=== PATIENT | female | born 1945 | race Caucasian/White ===

== ENCOUNTER 2018-11-06 09:16 | Inpatient (IN) | payer MEDICARE ==
[~2018-11-06] VITALS: Ht 151.1 cm; Wt 56.0 kg
[2018-11-06] VITALS (17 sets, daily range): BP systolic 134–169; BP diastolic 40–73
[2018-11-06] MEDS ORDERED: NITROGLYCERIN PREMIX 250 ML IV ONE (09:45)
[2018-11-06] MEDS ORDERED: ASPIRIN CHEWABLE 81 MG TABLET. PO ONE (09:45)
[2018-11-06 09:54] LABS: BASO # 0.1 x10^3/uL (0.0-0.2); BASO % 1 % (0-3); EOS # 0.2 x10^3/uL (0.0-0.7); EOS % 3 % (0-3); HEMATOCRIT 42.2 % (36.0-47.0); HEMOGLOBIN 14.1 g/dL (12.0-15.5); LYMPH # 3.9 x10^3/uL (1.0-4.8); LYMPH % 44 % (24-48); MEAN CORPUSCULAR HEMOGLOBIN 30 pg (25-35); MEAN CORPUSCULAR HGB CONC 33 g/dL (31-37); MEAN CORPUSCULAR VOLUME 89 fL (79-100); MONO # 0.7 x10^3/uL (0.0-1.1); MONO % 8 % (0-9); NEUT % 45 % (31-73); PLATELET COUNT 241 x10^3/uL (140-400); RED BLOOD COUNT 4.72 x10^6/uL (3.50-5.40); RED CELL DISTRIBUTION WIDTH 14.1 % (11.5-14.5)
--- NOTE | 2018-11-06 09:55 | RAD ---
Single view chest dated 11/06/2018. No comparison available. Clinical indication: Chest pain. FINDINGS: Single upright portable exam performed. Heart size mildly enlarged. There is some prominent perihilar and bibasilar linear markings. No consolidation or pleural effusion. No pneumothorax. Mild tortuosity of the thoracic aorta. IMPRESSION: 1. No acute radiographic abnormality. 2. Mild cardiomegaly. 3. Mild patchy and linear perihilar opacities, likely atelectasis. Electronically signed by: Leroy Cleaning MD (11/06/2018 9:51 AM) [id number]
--- NOTE | 2018-11-06 09:58 | PHYS DOC ---
Past Medical History Past Medical History: Hypertension Additional Past Medical Histor: "enlarged heart", pt not taking medications for years Past Surgical History: , Hysterectomy Alcohol Use: None Drug Use: None Adult General Chief Complaint Chief Complaint: CHEST PAIN HPI HPI Patient is a 73-year-old female who presents to the emergency department for evaluation. She states she has a past history of "an enlarged heart", but has not seen a doctor and is taking medication for quite some time. She states she began experiencing some chest discomfort yesterday evening, without radiation. She also reports shortness of breath. She denies any pleuritic pain, nausea, vomiting, diarrhea, or any known history of kidney trouble. There are no alleviating or exacerbating factors to her symptoms otherwise. Review of Systems Review of Systems Constitutional: Denies fever or chills [] Eyes: Denies change in visual acuity, redness, or eye pain [] HENT: Denies nasal congestion or sore throat [] Respiratory: Denies cough or pleuritic pain [] Cardiovascular: No additional information not addressed in HPI [] GI: Denies abdominal pain, nausea, vomiting, bloody stools or diarrhea [] : Denies dysuria or hematuria [] Musculoskeletal: Denies back pain or joint pain [] Integument: Denies rash or skin lesions [] Neurologic: Denies headache, focal weakness or sensory changes [] Endocrine: Denies polyuria or polydipsia [] All other systems were reviewed and found to be within normal limits, except as documented in this note. Current Medications Current Medications Current Medications Medications (Trade) Dose Ordered Sig/Sowmya Start Time Stop Time Status Last Admin Dose Admin Aspirin (Children'S Aspirin) 324 mg 1X ONCE 11/06/18 09:45 11/06/18 09:46 DC 11/06/18 09:51 324 MG Nicardipine HCl 50 mg/Sodium Chloride 250 ml @ 25 mls/hr CONT PRN 11/06/18 10:30 11/06/18 10:45 25 MLS/HR Nitroglycerin/ Dextrose 250 ml @ 3 mls/hr 1X ONCE 11/06/18 09:45 11/09/18 21:04 11/06/18 09:57 3 MLS/HR Allergies Allergies Allergies Coded Allergies Type Severity Reaction Last Updated Verified No Known Drug Allergies 11/06/18 No Physical Exam Physical Exam PHYSICAL EXAM: CONSTITUTIONAL: Well developed, well nourished HEAD: normocephalic, atraumatic EENT: PERRL, EOMI. Conjunctivae normal color, sclerae non-icteric; moist mucous membranes. NECK: Supple, non-tender; no meningismus. LUNGS: Lungs CTA, breathing even and unlabored. Normal air movement. HEART: Regular bradycardia, no murmur CHEST: No deformity; non-tender ABDOMEN: The abdomen is soft, and non-tender, no masses or bruits. EXTREM: Normal ROM; no deformity, no calf tenderness. Normal pulses palpable in all extremities. There is no pedal edema. SKIN: No rash; no diaphoresis NEURO: Alert; normal speech and cognition; CN's grossly intact; strength grossly intact without focal deficit. BACK: No CVA TTP. Current Patient Data Vital Signs Vital Signs Date Time Temp Pulse Resp B/P (MAP) Pulse Ox O2 Delivery O2 Flow Rate FiO2 11/06/18 10:55 45 16 232/84 (133) 96 Room Air 11/06/18 09:16 97.6 97.6 Lab Values Laboratory Tests Test 11/06/18 09:30 White Blood Count 9.0 x10^3/uL (4.0-11.0) Red Blood Count 4.72 x10^6/uL (3.50-5.40) Hemoglobin 14.1 g/dL (12.0-15.5) Hematocrit 42.2 % (36.0-47.0) Mean Corpuscular Volume 89 fL (79-100) Mean Corpuscular Hemoglobin 30 pg (25-35) Mean Corpuscular Hemoglobin Concent 33 g/dL (31-37) Red Cell Distribution Width 14.1 % (11.5-14.5) Platelet Count 241 x10^3/uL (140-400) Neutrophils (%) (Auto) 45 % (31-73) Lymphocytes (%) (Auto) 44 % (24-48) Monocytes (%) (Auto) 8 % (0-9) Eosinophils (%) (Auto) 3 % (0-3) Basophils (%) (Auto) 1 % (0-3) Neutrophils # (Auto) 4.0 x10^3uL (1.8-7.7) Lymphocytes # (Auto) 3.9 x10^3/uL (1.0-4.8) Monocytes # (Auto) 0.7 x10^3/uL (0.0-1.1) Eosinophils # (Auto) 0.2 x10^3/uL (0.0-0.7) Basophils # (Auto) 0.1 x10^3/uL (0.0-0.2) Prothrombin Time 12.4 SEC (11.7-14.0) Prothrombin Time INR 1.0 (0.8-1.1) Sodium Level 144 mmol/L (136-145) Potassium Level 3.5 mmol/L (3.5-5.1) Chloride Level 106 mmol/L (98-107) Carbon Dioxide Level 24 mmol/L (21-32) Anion Gap 14 (6-14) Blood Urea Nitrogen 12 mg/dL (7-20) Creatinine 1.0 mg/dL (0.6-1.0) Estimated GFR (Cockcroft-Gault) 54.7 BUN/Creatinine Ratio 12 (6-20) Glucose Level 94 mg/dL (70-99) Calcium Level 8.7 mg/dL (8.5-10.1) Magnesium Level 1.8 mg/dL (1.8-2.4) Total Bilirubin 0.3 mg/dL (0.2-1.0) Aspartate Amino Transferase (AST) 16 U/L (15-37) Alanine Aminotransferase (ALT) 15 U/L (14-59) Alkaline Phosphatase 83 U/L (46-116) Creatine Kinase 37 U/L (26-192) Creatine Kinase MB (Mass) 0.7 ng/mL (0.0-3.6) Creatine Kinase MB Relative Index 1.9 % (0-4) Troponin I Quantitative < 0.017 ng/mL (0.000-0.055) KI-Hbw-D-Type Natriuretic Peptide 686 pg/mL (0-124) H Total Protein 7.5 g/dL (6.4-8.2) Albumin 3.1 g/dL (3.4-5.0) L Albumin/Globulin Ratio 0.7 (1.0-1.7) L Thyroid Stimulating Hormone (TSH) 4.614 uIU/mL (0.358-3.74) H Free Thyroxine 1.01 ng/dL (0.76-1.46) Laboratory Tests 11/06/18 09:30 Laboratory Tests 11/06/18 09:30 EKG EKG [Probable t sinus rhythm with 2-1 AV block, cannot rule out third-degree heart block, with a ventricular rate of 42 beats for minute, left axis deviation, normal intervals. There are no acute ischemic ST/T changes.] Radiology/Procedures Radiology/Procedures [PROCEDURE: PORTABLE CHEST 1V Single view chest dated 11/06/2018. No comparison available. Clinical indication: Chest pain. FINDINGS: Single upright portable exam performed. Heart size mildly enlarged. There is some prominent perihilar and bibasilar linear markings. No consolidation or pleural effusion. No pneumothorax. Mild tortuosity of the thoracic aorta. IMPRESSION: 1. No acute radiographic abnormality. 2. Mild cardiomegaly. 3. Mild patchy and linear perihilar opacities, likely atelectasis.] Course & Med Decision Making Course & Med Decision Making Pertinent Labs and Imaging studies reviewed. (See chart for details) [11 AM:The patient's condition remains stable. I spoke with the hospitalist, who accepted the patient to the hospital for further evaluation and treatment. He also spoke with cardiology, who thinks the patient's EKG are more likely represents a 2:1 AV block rather than third-degree heart block, recommended Cardchencho, and will see the patient.] Dragon Disclaimer Dragon Disclaimer This electronic medical record was generated, in whole or in part, using a voice recognition dictation system. Departure Departure Impression: Primary Impression: Chest pain Additional Impression: Hypertension Disposition: ADMITTED INPATIENT Admitting Physician: Tish Vargas Condition: STABLE Referrals: UNKNOWN PCP NAME (PCP) Problem Qualifiers WALKER BAXTER MD Nov 06, 2018 09:58
[2018-11-06 10:03] LABS: PROTHROMBIN TIME PATIENT 12.4 SEC (11.7-14.0)
[2018-11-06 10:07] LABS: CALCIUM 8.7 mg/dL (8.5-10.1); GFR 54.7; POTASSIUM 3.5 mmol/L (3.5-5.1)
[2018-11-06 10:13] LABS: ALBUMIN 3.1 g/dL (3.4-5.0); ALBUMIN/GLOBULIN RATIO 0.7 (1.0-1.7); MAGNESIUM 1.8 mg/dL (1.8-2.4); TOTAL BILIRUBIN 0.3 mg/dL (0.2-1.0); TOTAL PROTEIN 7.5 g/dL (6.4-8.2)
[2018-11-06 10:20] LABS: FREE T4 1.01 ng/dL (0.76-1.46); THYROID STIM HORMONE (TSH) 4.614 uIU/mL (0.358-3.74)
--- NOTE | 2018-11-06 12:23 | PDOC1 ---
History and Physical Date of Admission Date of Admission DATE: 11/06/18 TIME: 12:18 Identification/Chief Complaint Chief Complaint Chest pain Source Source: Caregiver, Chart review, Patient History of Present Illness History of Present Illness 73-year-old white female who lives alone at home, untreated hypertension, no insurance, no PCP, but sounds like she has long-standing hypertension . At one point, put on meds by [facility] many years ago but has been off of anything now. Chest pain severe today and found have a blood pressure of over 230. She looks kind of flushed. Chest pain moving to her left arm and right arm all over her chest. Started on Cardene drip and nitro drip. Trop neg, labs ok so far Admitted. Bradycardia, initial EKG was thought to be third degree heart block but neurology has seen the EKG is only 2-1 AV block. Admitted to ICU with nitro gtt to control blood pressure along with cards consulted. TSH is 4/ but T4 T3 normal, patient still is having some mild chest discomfort, appears hyperemic otherwise no other symptoms. Past Medical History Cardiovascular: HTN Past Surgical History Past Surgical History: No pertinent history Family History Family History: High Cholestrol, Hypertension Social History Smoke: No ALCOHOL: none Drugs: None Current Problem List Problem List Problems Medical Problems: (1) Chest pain Status: Acute (2) Hypertension Status: Acute Current Medications Current Medications Current Medications Aspirin (Children'S Aspirin) 324 mg 1X ONCE PO Last administered on 11/06/18at 09:51; Start 11/06/18 at 09:45; Stop 11/06/18 at 09:46; Status DC Nitroglycerin/ Dextrose 250 ml @ 3 mls/hr 1X ONCE IV Last administered on 11/06at 09:57; Start 11/06/18 at 09:45; Stop 11/09/18 at 21:04 Nicardipine HCl 50 mg/Sodium Chloride 250 ml @ 25 mls/hr CONT PRN IV SEE I/O RECORD Last administered on 11/06/18at 10:45; Start 11/06/18 at 10:30 Allergies Allergies: Coded Allergies: No Known Drug Allergies (Unverified , 11/06/18) ROS Review of System For history of present illness, the rest of ROS 14 point negative Physical Exam General: Alert, Oriented X3, Cooperative, No acute distress, Other (weak looking, not in distress) HEENT: Atraumatic, PERRLA, EOMI Lungs: Clear to auscultation Heart: S1S2, RRR, no thrills, no rubs, no gallops, no murmurs Cardiovascular: S1, S2 Abdomen: Normal bowel sounds, Soft, No tenderness, No hepatosplenomegaly, No masses Rectal Exam: not examined PELVIC: Nml ext genitalia Extremities: No clubbing, No cyanosis, No edema, Normal pulses, No tenderness/ swelling Skin: No rashes, No breakdown, No significant lesion Neuro: Normal gait, Normal speech, Strength at 5/5 X4 ext, Normal tone, Sensation intact, Cranial nerves 3-12 NL, Reflexes 2+ Psych/Mental Status: Mental status NL, Mood NL Vitals Vitals Vital Signs Date Time Temp Pulse Resp B/P (MAP) Pulse Ox O2 Delivery O2 Flow Rate FiO2 11/06/18 11:38 46 16 156/68 (97) 95 Room Air 11/06/18 09:16 97.6 97.6 Labs Labs Laboratory Tests Test 11/06/18 09:30 White Blood Count 9.0 x10^3/uL (4.0-11.0) Red Blood Count 4.72 x10^6/uL (3.50-5.40) Hemoglobin 14.1 g/dL (12.0-15.5) Hematocrit 42.2 % (36.0-47.0) Mean Corpuscular Volume 89 fL (79-100) Mean Corpuscular Hemoglobin 30 pg (25-35) Mean Corpuscular Hemoglobin Concent 33 g/dL (31-37) Red Cell Distribution Width 14.1 % (11.5-14.5) Platelet Count 241 x10^3/uL (140-400) Neutrophils (%) (Auto) 45 % (31-73) Lymphocytes (%) (Auto) 44 % (24-48) Monocytes (%) (Auto) 8 % (0-9) Eosinophils (%) (Auto) 3 % (0-3) Basophils (%) (Auto) 1 % (0-3) Neutrophils # (Auto) 4.0 x10^3uL (1.8-7.7) Lymphocytes # (Auto) 3.9 x10^3/uL (1.0-4.8) Monocytes # (Auto) 0.7 x10^3/uL (0.0-1.1) Eosinophils # (Auto) 0.2 x10^3/uL (0.0-0.7) Basophils # (Auto) 0.1 x10^3/uL (0.0-0.2) Prothrombin Time 12.4 SEC (11.7-14.0) Prothromb Time International Ratio 1.0 (0.8-1.1) Sodium Level 144 mmol/L (136-145) Potassium Level 3.5 mmol/L (3.5-5.1) Chloride Level 106 mmol/L (98-107) Carbon Dioxide Level 24 mmol/L (21-32) Anion Gap 14 (6-14) Blood Urea Nitrogen 12 mg/dL (7-20) Creatinine 1.0 mg/dL (0.6-1.0) Estimated GFR (Cockcroft-Gault) 54.7 BUN/Creatinine Ratio 12 (6-20) Glucose Level 94 mg/dL (70-99) Calcium Level 8.7 mg/dL (8.5-10.1) Magnesium Level 1.8 mg/dL (1.8-2.4) Total Bilirubin 0.3 mg/dL (0.2-1.0) Aspartate Amino Transf (AST/SGOT) 16 U/L (15-37) Alanine Aminotransferase (ALT/SGPT) 15 U/L (14-59) Alkaline Phosphatase 83 U/L (46-116) Creatine Kinase 37 U/L (26-192) Creatine Kinase MB (Mass) 0.7 ng/mL (0.0-3.6) Creatine Kinase MB Relative Index 1.9 % (0-4) Troponin I Quantitative < 0.017 ng/mL (0.000-0.055) QV-Msc-F-Type Natriuretic Peptide 686 pg/mL (0-124) Total Protein 7.5 g/dL (6.4-8.2) Albumin 3.1 g/dL (3.4-5.0) Albumin/Globulin Ratio 0.7 (1.0-1.7) Thyroid Stimulating Hormone (TSH) 4.614 uIU/mL (0.358-3.74) Free Thyroxine 1.01 ng/dL (0.76-1.46) Laboratory Tests Test 3/13/19 09:30 White Blood Count 9.0 x10^3/uL (4.0-11.0) Red Blood Count 4.72 x10^6/uL (3.50-5.40) Hemoglobin 14.1 g/dL (12.0-15.5) Hematocrit 42.2 % (36.0-47.0) Mean Corpuscular Volume 89 fL (79-100) Mean Corpuscular Hemoglobin 30 pg (25-35) Mean Corpuscular Hemoglobin Concent 33 g/dL (31-37) Red Cell Distribution Width 14.1 % (11.5-14.5) Platelet Count 241 x10^3/uL (140-400) Neutrophils (%) (Auto) 45 % (31-73) Lymphocytes (%) (Auto) 44 % (24-48) Monocytes (%) (Auto) 8 % (0-9) Eosinophils (%) (Auto) 3 % (0-3) Basophils (%) (Auto) 1 % (0-3) Neutrophils # (Auto) 4.0 x10^3uL (1.8-7.7) Lymphocytes # (Auto) 3.9 x10^3/uL (1.0-4.8) Monocytes # (Auto) 0.7 x10^3/uL (0.0-1.1) Eosinophils # (Auto) 0.2 x10^3/uL (0.0-0.7) Basophils # (Auto) 0.1 x10^3/uL (0.0-0.2) Prothrombin Time 12.4 SEC (11.7-14.0) Prothromb Time International Ratio 1.0 (0.8-1.1) Sodium Level 144 mmol/L (136-145) Potassium Level 3.5 mmol/L (3.5-5.1) Chloride Level 106 mmol/L (98-107) Carbon Dioxide Level 24 mmol/L (21-32) Anion Gap 14 (6-14) Blood Urea Nitrogen 12 mg/dL (7-20) Creatinine 1.0 mg/dL (0.6-1.0) Estimated GFR (Cockcroft-Gault) 54.7 BUN/Creatinine Ratio 12 (6-20) Glucose Level 94 mg/dL (70-99) Calcium Level 8.7 mg/dL (8.5-10.1) Magnesium Level 1.8 mg/dL (1.8-2.4) Total Bilirubin 0.3 mg/dL (0.2-1.0) Aspartate Amino Transf (AST/SGOT) 16 U/L (15-37) Alanine Aminotransferase (ALT/SGPT) 15 U/L (14-59) Alkaline Phosphatase 83 U/L (46-116) Creatine Kinase 37 U/L (26-192) Creatine Kinase MB (Mass) 0.7 ng/mL (0.0-3.6) Creatine Kinase MB Relative Index 1.9 % (0-4) Troponin I Quantitative < 0.017 ng/mL (0.000-0.055) BU-Siu-Z-Type Natriuretic Peptide 686 pg/mL (0-124) Total Protein 7.5 g/dL (6.4-8.2) Albumin 3.1 g/dL (3.4-5.0) Albumin/Globulin Ratio 0.7 (1.0-1.7) Thyroid Stimulating Hormone (TSH) 4.614 uIU/mL (0.358-3.74) Free Thyroxine 1.01 ng/dL (0.76-1.46) VTE Prophylaxis Ordered VTE Prophylaxis Devices: Yes VTE Pharmacological Prophylaxi: Yes Assessment/Plan Assessment/Plan HTN emergency Bradycardia with 2-1 AV block Long-standing untreated hypertension Chest discomfort PLAN: ICU, cards consulted Hydralazine when necessary Nitro drip Cardizem drip has been stopped-given the 2-1 block most likely No home meds to reconcile Will at least need an echo Compliance about medications when she gets discharged here about BP meds, risk of stroke etc. discussed with her at ER level with the son as witness and understands Critical care 31 minutes LYNDSAY HILLS MD Nov 06, 2018 12:23
[2018-11-06] MEDS ORDERED: ONDANSETRON ODT 4 MG TAB.RAPDIS. PO PRN (12:30)
[2018-11-06] MEDS ORDERED: MORPHINE SULFATE 2 MG/ML VIAL. IV PRN (12:30)
[2018-11-06] MEDS ORDERED: ACETAMINOPHEN 500 MG TABLET PO PRN (12:30)
[2018-11-06] MEDS ORDERED: IBUPROFEN 400 MG TABLET. PO PRN (12:30)
--- NOTE | 2018-11-06 12:53 | EKG ---
[facility] [address] [place] [address] Test Date: 2018-11-06 Test Time: 09:33:29 Pat Name: MARILOU ORTIZ Department: Room: 105 1 Gender: F Entry Processor: : 1945 Requested By: WALKER BAXTER Order Number: [id number] Reading MD: Kali Fontana MD Measurements Intervals [place] Rate: 41 P: CO: QRS: -19 QRSD: 70 T: 85 QT: 518 QTc: 431 Interpretive Statements 2:1 AVB NON-SPECIFIC ST/T CHANGES Electronically Signed On 11-14-2018 9:42:52 CDT by Kali Fontana MD
--- NOTE | 2018-11-06 12:56 | NUR ---
SS following for discharge planning. SS reviewed pt chart. Pt is from home and is currently on room air. No discharge needs noted at this time. SS will continue to follow for pending discharge needs.
--- NOTE | 2018-11-06 13:00 | NUR ---
When questioned patient why she quit taking her blood pressure medication she told me that the doctor at [facility] told her a long time ago that if she could wean herself off of the heart and blood pressure medication in 3 years then to do it.
--- NOTE | 2018-11-06 13:01 | EKG ---
[facility] [address] [place] [address] Test Date: 2018-11-06 Test Time: 09:22:12 Pat Name: MARILOU ORTIZ Department: Room: 105 1 Gender: F Spare Person: : 1945 Requested By: LYNDSAY HILLS Order Number: [id number] Reading MD: Kali Fontana MD Measurements Intervals [place] Rate: 46 P: DC: QRS: -17 QRSD: 64 T: 94 QT: 502 QTc: 444 Interpretive Statements PROBABLE SR 3RD DEGREE HEART BLOCK Electronically Signed On 11-14-2018 9:42:18 CDT by Kali Fontana MD
--- NOTE | 2018-11-06 15:31 | EKG ---
[facility] [address] [place] [address] Test Date: 2018-11-06 Test Time: 15:23:49 Pat Name: MARILOU ORTIZ Department: Room: 105 1 Gender: F Career Placement Specialist: AT : 1945 Requested By: CHRIS CHRISTIE Order Number: [id number] Reading MD: Chris Christie MD Measurements Intervals [place] Rate: 42 P: NE: QRS: -27 QRSD: 72 T: 84 QT: 506 QTc: 425 Interpretive Statements HIGH GRADE AVB Electronically Signed On 11-14-2018 9:48:48 CDT by Chris Christie MD
--- NOTE | 2018-11-06 16:14 | CARD ---
MR#: [id number] Date of Study: 11/06/2018 Ordering Physician: TRICE QURESHI, Referring Physician: LYNDSAY HILLS Tech: Emelina Easley APPROVED REPORT EXAM: Two-dimensional and M-mode echocardiogram with Doppler and color Doppler. Other Information Quality : AverageHR: 91bpm Technically limited study due to body habitus. INDICATION Chest Pain AV Block LEFT VENTRICLE The left ventricle is normal size. There is normal left ventricular wall thickness. The left ventricu lar systolic function is normal and the ejection fraction is within normal range. The Ejection Fracti on is >55%. There is grossly normal LV segmental wall motion. Transmitral Doppler flow pattern is Gra de I-abnormal relaxation pattern. RIGHT VENTRICLE The right ventricle is normal size. There is normal right ventricular wall thickness. The right ventr icular systolic function is normal. ATRIA The left atrium size is normal. The right atrium is borderline dilated. The interatrial septum is int act with no evidence for an atrial septal defect or patent foramen ovale as noted on 2-D or Doppler i maging. AORTIC VALVE The aortic valve is sclerotic but grossly appears trileaflet. Doppler and Color Flow revealed mild ao rtic regurgitation. There is no significant aortic valvular stenosis. MITRAL VALVE The mitral valve is moderately thickened and calcified. There is no evidence of mitral valve prolapse . There is no mitral valve stenosis. Doppler and Color-flow revealed mild mitral regurgitation. TRICUSPID VALVE The tricuspid valve is normal in structure and function. Doppler and Color Flow revealed mild tricusp id regurgitation. RVSP 38 mm Hg There is no tricuspid valve stenosis. PULMONIC VALVE The pulmonic valve is not well visualized. Doppler and Color Flow revealed no pulmonic valvular regur gitation. There is no pulmonic valvular stenosis. GREAT VESSELS The aortic root is normal in size. The IVC is normal in size and collapses >50% with inspiration. PERICARDIAL EFFUSION There is a trace pericardial effusion. Critical Notification Critical Value: No <Conclusion> The left ventricular systolic function is normal and the ejection fraction is within normal range. Th e Ejection Fraction is >55%. There is grossly normal LV segmental wall motion. Doppler and Color-flow revealed mild mitral regurgitation. Doppler and Color Flow revealed mild tricuspid regurgitation. RVSP 38 mm Hg. There is a trace pericardial effusion. Signed by : Kali Fontana, Electronically Approved : 11/06/2018 16:14:27
--- NOTE | 2018-11-06 17:05 | PDOC2 ---
TRICE QURESHI Isidra [employer]MENT[employer] S[employer]OL LIBR[employer]IAN 11/06/18 1705: CARDIAC CONSULT DATE OF CONSULT Date of Consult DATE: 11/06/18 TIME: 17:02 REASON FOR CONSULT Reason for Consult: bradycardia, chest pain HISTORY OF PRESENT ILLNESS HISTORY OF PRESENT ILLNESS Ms Chen is a 73 year old female who presented to the ED with complaints of chest pain and was found to be bradycardic with accelerated hypertension. She reports chest discomfort off and on with increasing frequency over the last few weeks. Each episode lasts for a few minutes and improves with rest. She reports fatigue and shortness of breath with exertion as well. She has history of hypertension and enlarged heart but had stopped taking her medications because she thought she no longer needed them. She is unable to verbalize her functional capacity but reports that she is able to complete ADLs without symptoms. She denies congestive symptoms, lightheadedness or syncope. PAST MEDICAL HISTORY Past Medical History She reports hypertension and enlarged heart but denies any other heart problems. She denies lung disease, renal disease, liver disease. She denies stroke or TIA, denies bleeding or GI disorders. She denies prior rhythm problems , DVT or PE or endocrine disorders. Cardiovascular: HTN, Other PAST SURGICAL HISTORY Past Surgical History: Hysterectomy FAMILY HISTORY Family History she denies premature coronary disease Family History: High Cholestrol, Hypertension SOCIAL HISTORY Social History She denies drug use or significant ETOH use. She denies smoking. CURRENT MEDICATIONS CURRENT MEDICATIONS She had stopped home medications Current Medications Medications (Trade) Dose Ordered Sig/Sowmya Route PRN Reason Start Time Stop Time Status Last Admin Dose Admin Aspirin (Children'S Aspirin) 324 mg 1X ONCE PO 11/06/18 09:45 11/06/18 09:46 DC 11/06/18 09:51 Nitroglycerin/ Dextrose 250 ml @ 3 mls/hr 1X ONCE IV 11/06/18 09:45 11/09/18 21:04 11/06/18 09:57 Nicardipine HCl 50 mg/Sodium Chloride 250 ml @ 25 mls/hr CONT PRN IV SEE I/O RECORD 11/06/18 10:30 11/06/18 16:35 DC 11/06/18 10:45 ALLERGIES ALLERGIES: Coded Allergies: No Known Drug Allergies (Unverified , 11/06/18) ROS Review of System as per HPI or negative PHYSICAL EXAM General: Alert, Oriented X3, Cooperative, No acute distress HEENT: Atraumatic, EOMI Lungs: Other (decreased bases otherwise clear) Heart: Other (bradycardic, no gallos, clicks or rubs. ) Abdomen: Normal bowel sounds, Soft, No tenderness Extremities: No cyanosis, Other (palpable) Neuro: Normal speech, Strength at 5/5 X4 ext Psych/Mental Status: Mental status NL, Mood NL VITALS VITALS Vital Signs Date Time Temp Pulse Resp B/P (MAP) Pulse Ox O2 Delivery O2 Flow Rate FiO2 11/06/18 16:00 97.9 49 14 137/51 (79) 95 Room Air 97.9 LABS Lab: Laboratory Tests Test 11/06/18 09:30 11/06/18 14:00 White Blood Count 9.0 x10^3/uL (4.0-11.0) Red Blood Count 4.72 x10^6/uL (3.50-5.40) Hemoglobin 14.1 g/dL (12.0-15.5) Hematocrit 42.2 % (36.0-47.0) Mean Corpuscular Volume 89 fL (79-100) Mean Corpuscular Hemoglobin 30 pg (25-35) Mean Corpuscular Hemoglobin Concent 33 g/dL (31-37) Red Cell Distribution Width 14.1 % (11.5-14.5) Platelet Count 241 x10^3/uL (140-400) Neutrophils (%) (Auto) 45 % (31-73) Lymphocytes (%) (Auto) 44 % (24-48) Monocytes (%) (Auto) 8 % (0-9) Eosinophils (%) (Auto) 3 % (0-3) Basophils (%) (Auto) 1 % (0-3) Neutrophils # (Auto) 4.0 x10^3uL (1.8-7.7) Lymphocytes # (Auto) 3.9 x10^3/uL (1.0-4.8) Monocytes # (Auto) 0.7 x10^3/uL (0.0-1.1) Eosinophils # (Auto) 0.2 x10^3/uL (0.0-0.7) Basophils # (Auto) 0.1 x10^3/uL (0.0-0.2) Prothrombin Time 12.4 SEC (11.7-14.0) Prothromb Time International Ratio 1.0 (0.8-1.1) Sodium Level 144 mmol/L (136-145) Potassium Level 3.5 mmol/L (3.5-5.1) Chloride Level 106 mmol/L (98-107) Carbon Dioxide Level 24 mmol/L (21-32) Anion Gap 14 (6-14) Blood Urea Nitrogen 12 mg/dL (7-20) Creatinine 1.0 mg/dL (0.6-1.0) Estimated GFR (Cockcroft-Gault) 54.7 BUN/Creatinine Ratio 12 (6-20) Glucose Level 94 mg/dL (70-99) Calcium Level 8.7 mg/dL (8.5-10.1) Magnesium Level 1.8 mg/dL (1.8-2.4) Total Bilirubin 0.3 mg/dL (0.2-1.0) Aspartate Amino Transf (AST/SGOT) 16 U/L (15-37) Alanine Aminotransferase (ALT/SGPT) 15 U/L (14-59) Alkaline Phosphatase 83 U/L (46-116) Creatine Kinase 37 U/L (26-192) Creatine Kinase MB (Mass) 0.7 ng/mL (0.0-3.6) Creatine Kinase MB Relative Index 1.9 % (0-4) Troponin I Quantitative < 0.017 ng/mL (0.000-0.055) 0.030 ng/mL (0.000-0.055) MM-Ycg-G-Type Natriuretic Peptide 686 pg/mL (0-124) Total Protein 7.5 g/dL (6.4-8.2) Albumin 3.1 g/dL (3.4-5.0) Albumin/Globulin Ratio 0.7 (1.0-1.7) Thyroid Stimulating Hormone (TSH) 4.614 uIU/mL (0.358-3.74) Free Thyroxine 1.01 ng/dL (0.76-1.46) IMAGES IMAGES CXR - IMPRESSION: 1. No acute radiographic abnormality. 2. Mild cardiomegaly. 3. Mild patchy and linear perihilar opacities, likely atelectasis. EKG EKG EKG 2:1 AVB , no acute ischemic changes. ASSESSMENT/PLAN ASSESSMENT/PLAN 1. High grade AVB - avoid av node suppressing agents. check echo. atropine PRN. consider PPM placement in am. 2. chest pain - likely secondary to #1. Normal LVEF and wall motion. Consider MPI after rhythm mgmt. 3. dyspnea on exertion - likely secondary to #1 No overt heart failure. 4. hypothyroidism, mild - not likely culprit for #1. mgmt per PCP NPO after MN for possible PPM, atropine PRN. BP control much improved with cardene. would allow for a little more elevated pressures in light of heart rhythm. titrate off cardene if possible R/B/A to PPM reviewed with patient. CHRIS CHRISTIE MD 11/06/182044: CARDIAC CONSULT ASSESSMENT/PLAN ASSESSMENT/PLAN Pt. seen and examined. Agree with above [employer]IV[employer] WORK[employer]IVING note. 73 y.o female presenting with high grade AVB and severe malignant HTN Currently w/o chest pain. Echo with normal EF Continue BP control. Plan for dual chamber pacer tomorrow. R/b/a discussed with patient and family. They wish to proceed. TRICE QURESHI APRN Nov 06, 2018 17:05 CHRIS CHRISTIE MD Nov 06, 2018 20:45
[2018-11-06] MEDS ORDERED: ATROPINE 0.5 MG/5 ML DISP.SYRINGE. IV PRN (17:15)
[2018-11-06 17:53] LABS: CHOLESTEROL/HDL RATIO 5.5
[2018-11-07] VITALS (29 sets, daily range): BP systolic 115–175; BP diastolic 48–99
[2018-11-07] MEDS ORDERED: MIDAZOLAM HCL/PF 2 MG/2 ML VIAL. IV ONE (08:00)
[2018-11-07] MEDS ORDERED: LIDOCAINE 1%/EPI 1:100,000 20 ML VIAL. IJ ONE (08:00)
[2018-11-07] MEDS ORDERED: fentaNYL PF VIAL 100 MCG/2 ML VIAL ONE (08:03)
[2018-11-07] MEDS ORDERED: LIDOCAINE 2%/EPI 1:100,000 20 ML VIAL. ONE (08:03)
[2018-11-07] MEDS ORDERED: MIDAZOLAM HCL/PF 2 MG/2 ML VIAL. ONE (08:03)
--- NOTE | 2018-11-07 08:20 | NUR ---
[id number] : Reinforced pre and post op expectations w pacer placement. Questions answered/permits signed and charted. medical lab director here. transported per bed /full monitor for procedure.
[2018-11-07] MEDS ORDERED: BACITRACIN 50,000 UNIT in IV NORMAL SALINE 250ML 250 ML IRR ONE (08:30)
--- NOTE | 2018-11-07 08:44 | PDOC ---
MODERATE SEDATION ASSESSMENT RISKS/ALTERNATIVES Risks/Alternatives Risks and alternatives of this type of sedation and procedure discussed with: RISK/ALTERNATIVES: Patient H & P ON CHART H & P H & P on chart and reviewed for co-morbid conditions and appropriate labs. H&P ON CHART: Yes STATUS PREG STATUS ASSESSED: N/A MEDS/ALLERGIES REVIEWED Meds/Allergies Reviewed Medications and Allergies including time and route of recently administered narcotics and sedatives. MEDS/ALLERGIES REVIEWED: Yes ASA RATING ASA RATING: III AIRWAY ASSESSMENT Airway Assessment Airway patency, oral function limitations, presence of caps, crowns, dentures, partials, and ability to extend neck assessed. AIRWAY ASSESSMENT: Yes MALLAMPATI SCORE MALLAMPATI SCORE: II PRE-SEDATION ASSESSMENT PRE-SEDATION ASSESSMENT: Yes CHRIS CHRISTIE MD Nov 07, 2018 08:44
[2018-11-07] MEDS ORDERED: LIDOCAINE 2%/EPI 1:100,000 20 ML VIAL. IJ ONE (09:00)
[2018-11-07] MEDS: fentaNYL PF VIAL 100 MCG/2 ML VIAL IV ONE (09:01)
--- NOTE | 2018-11-07 10:26 | PDOC ---
PROGRESS NOTES History of Present Illness History of Present Illness Assessment/Plan Assessment/Plan SEVERE HTN emergency High grade AVB Echo with normal EF dual chamber pacer NEEDED Long-standing untreated hypertension Chest discomfort PLAN: ICU, cards consulted Hydralazine IV PRN Nitro drip Cardizem drip d/c echo Compliance about medications needs pcp soon 33 min cc time Vitals Vitals Vital Signs Date Time Temp Pulse Resp B/P (MAP) Pulse Ox O2 Delivery O2 Flow Rate FiO2 11/07/18 10:03 94 14 96 Nasal Cannula 2.0 11/07/18 08:00 158/66 (96) 11/07/18 07:00 98.1 98.1 Physical Exam General: Alert, Oriented X3, Cooperative, No acute distress, mild distress Heart: Regular rate, No murmurs, Other (bradycardic, no gallos, clicks or rubs. ) Lungs: Clear Abdomen: Normal bowel sounds, Soft, No tenderness Extremities: No cyanosis, Other (palpable) Skin: No rashes, No breakdown, No significant lesion Labs LABS Laboratory Tests Test 11/06/18 12:59 11/06/18 14:00 11/06/18 17:40 Nasal Screen MRSA (PCR) Negative (Negative) Troponin I Quantitative 0.030 ng/mL (0.000-0.055) 0.020 ng/mL (0.000-0.055) Assessment and Plan Assessmemt and Plan Problems Medical Problems: (1) Chest pain Status: Acute (2) Hypertension Status: Acute Comment Review of Relevant I have reviewed the following items carissa (where applicable) has been applied. Labs Laboratory Tests Test 11/06/18 09:30 11/06/18 12:59 11/06/18 14:00 11/06/18 17:40 White Blood Count 9.0 x10^3/uL (4.0-11.0) Red Blood Count 4.72 x10^6/uL (3.50-5.40) Hemoglobin 14.1 g/dL (12.0-15.5) Hematocrit 42.2 % (36.0-47.0) Mean Corpuscular Volume 89 fL (79-100) Mean Corpuscular Hemoglobin 30 pg (25-35) Mean Corpuscular Hemoglobin Concent 33 g/dL (31-37) Red Cell Distribution Width 14.1 % (11.5-14.5) Platelet Count 241 x10^3/uL (140-400) Neutrophils (%) (Auto) 45 % (31-73) Lymphocytes (%) (Auto) 44 % (24-48) Monocytes (%) (Auto) 8 % (0-9) Eosinophils (%) (Auto) 3 % (0-3) Basophils (%) (Auto) 1 % (0-3) Neutrophils # (Auto) 4.0 x10^3uL (1.8-7.7) Lymphocytes # (Auto) 3.9 x10^3/uL (1.0-4.8) Monocytes # (Auto) 0.7 x10^3/uL (0.0-1.1) Eosinophils # (Auto) 0.2 x10^3/uL (0.0-0.7) Basophils # (Auto) 0.1 x10^3/uL (0.0-0.2) Prothrombin Time 12.4 SEC (11.7-14.0) Prothromb Time International Ratio 1.0 (0.8-1.1) Sodium Level 144 mmol/L (136-145) Potassium Level 3.5 mmol/L (3.5-5.1) Chloride Level 106 mmol/L (98-107) Carbon Dioxide Level 24 mmol/L (21-32) Anion Gap 14 (6-14) Blood Urea Nitrogen 12 mg/dL (7-20) Creatinine 1.0 mg/dL (0.6-1.0) Estimated GFR (Cockcroft-Gault) 54.7 BUN/Creatinine Ratio 12 (6-20) Glucose Level 94 mg/dL (70-99) Calcium Level 8.7 mg/dL (8.5-10.1) Magnesium Level 1.8 mg/dL (1.8-2.4) Total Bilirubin 0.3 mg/dL (0.2-1.0) Aspartate Amino Transf (AST/SGOT) 16 U/L (15-37) Alanine Aminotransferase (ALT/SGPT) 15 U/L (14-59) Alkaline Phosphatase 83 U/L (46-116) Creatine Kinase 37 U/L (26-192) Creatine Kinase MB (Mass) 0.7 ng/mL (0.0-3.6) Creatine Kinase MB Relative Index 1.9 % (0-4) Troponin I Quantitative < 0.017 ng/mL (0.000-0.055) 0.030 ng/mL (0.000-0.055) 0.020 ng/mL (0.000-0.055) TE-Lsh-I-Type Natriuretic Peptide 686 pg/mL (0-124) Total Protein 7.5 g/dL (6.4-8.2) Albumin 3.1 g/dL (3.4-5.0) Albumin/Globulin Ratio 0.7 (1.0-1.7) Triglycerides Level 292 mg/dL (0-150) Cholesterol Level 221 mg/dL (0-200) LDL Cholesterol, Calculated 123 mg/dL (0-100) VLDL Cholesterol, Calculated 58 mg/dL (0-40) Non-HDL Cholesterol Calculated 181 mg/dL (0-129) HDL Cholesterol 40 mg/dL (40-60) Cholesterol/HDL Ratio 5.5 Thyroid Stimulating Hormone (TSH) 4.614 uIU/mL (0.358-3.74) Free Thyroxine 1.01 ng/dL (0.76-1.46) Nasal Screen MRSA (PCR) Negative (Negative) Laboratory Tests Test 11/06/18 12:59 11/06/18 14:00 11/06/18 17:40 Nasal Screen MRSA (PCR) Negative (Negative) Troponin I Quantitative 0.030 ng/mL (0.000-0.055) 0.020 ng/mL (0.000-0.055) Medications Current Medications Aspirin (Children'S Aspirin) 324 mg 1X ONCE PO Last administered on 11/06/18at 09:51; Start 11/06/18 at 09:45; Stop 11/06/18 at 09:46; Status DC Nitroglycerin/ Dextrose 250 ml @ 3 mls/hr 1X ONCE IV Last administered on 11/06at 09:57; Start 11/06/18 at 09:45; Stop 11/09/18 at 21:04 Nicardipine HCl 50 mg/Sodium Chloride 250 ml @ 25 mls/hr CONT PRN IV SEE I/O RECORD Last administered on 11/06/18at 10:45; Start 11/06/18 at 10:30; Stop 11/06 at 16:35; Status DC Acetaminophen (Tylenol) 500 mg PRN Q6HRS PRN PO MILD PAIN / TEMP; Start at 12:30 Acetaminophen/ Codeine Phosphate (Tylenol #3) 1 tab PRN Q6HRS PRN PO PAIN; Start 11/06/18 at 12:30 Morphine Sulfate (Morphine Sulfate) 2 mg PRN Q2HR PRN IV PAIN; Start 11/06/18 at 12:30 Hydralazine HCl (Apresoline Inj) 10 mg PRN Q4HRS PRN IVP ELEVATED BP, SEE COMMENTS; Start 11/06/18 at 12:30 Ibuprofen (Motrin) 400 mg PRN Q6HRS PRN PO INFLAMMATION; Start 11/06/18 at 12: 30 Ondansetron HCl (Zofran) 4 mg PRN Q6HRS PRN IV NAUSEA/VOMITING; Start 11/06/18 at 12:30 Ondansetron HCl (Zofran Odt) 4 mg PRN Q6HRS PRN PO NAUSEA/VOMITING; Start 11/06 at 12:30 Nicardipine HCl 50 mg/Sodium Chloride 250 ml @ 25 mls/hr CONT PRN IV SEE I/O RECORD Last administered on 11/06/18at 17:32; Start 11/06/18 at 16:45 Atropine Sulfate (ATROPINE 0.5mg SYRINGE) 0.5 mg PRN 1X PRN IV symptomatic bradycardia; Start 11/06/18 at 17:15 Midazolam HCl (Versed) 2 mg 1X ONCE IV Last administered on 11/07/18at 09:01; Start 11/07/18 at 08:00; Stop 11/07/18 at 08:04; Status DC Fentanyl Citrate (Fentanyl 2ml Vial) 100 mcg 1X ONCE IV Last administered on at 09:01; Start 11/07/18 at 08:00; Stop 11/07/18 at 08:04; Status DC Lidocaine/ Epinephrine (LIDOCAINE 1%-EPI 1:100,000 Multi-Dose) 20 ml 1X ONCE IJ ; Start 11/07/18 at 08:00; Stop 11/07/18 at 08:01; Status Cancel Bacitracin 03197 unit/Sodium Chloride 250 ml @ 0 mls/hr 1X ONCE IRR Last administered on 11/07/18at 09:35; Start 11/07/18 at 08:30; Stop 11/07/18 at 08:31 ; Status DC Cefazolin Sodium 50 ml @ 100 mls/hr 1X ONCE IV Last administered on at 08:45; Start 11/07/18 at 08:00; Stop 11/07/18 at 08:29; Status DC Lidocaine/ Epinephrine (LIDOCAINE 2%-EPI 1:100,000 multi-dose) 20 ml STK-MED ONCE .ROUTE ; Start 11/07/18 at 08:03; Stop 11/07/18 at 08:08; Status DC Midazolam HCl (Versed) 2 mg STK-MED ONCE .ROUTE ; Start 11/07/18 at 08:03; Stop 11/07/18 at 08:08; Status DC Fentanyl Citrate (Fentanyl 2ml Vial) 100 mcg STK-MED ONCE .ROUTE ; Start at 08:03; Stop 11/07/18 at 08:08; Status DC Cefazolin Sodium 50 ml @ As Directed STK-MED ONCE IV ; Start 11/07/18 at 08:04; Stop 11/07/18 at 08:08; Status DC Lidocaine/ Epinephrine (LIDOCAINE 2%-EPI 1:100,000 multi-dose) 20 ml 1X ONCE IJ Last administered on 11/07/18at 09:02; Start 11/07/18 at 09:00; Stop at 09:07; Status DC Vitals/I & O Vital Sign - Last 24 Hours 11/06/18 11/06/18 11/06/18 11/06/18 10:27 10:44 10:55 11:00 Pulse 42 48 45 48 Resp 16 16 16 16 B/P (MAP) 230/84 (132) 242/78 (132) 232/84 (133) 214/78 (123) Pulse Ox 98 96 96 97 O2 Delivery Room Air Room Air Room Air 11/06/18 11/06/18 11/06/18 11/06/18 11:07 11:13 11:23 11:28 Pulse 48 48 48 48 Resp 16 18 16 18 B/P (MAP) 196/66 (109) 178/76 (110) 165/70 (101) 170/74 (106) Pulse Ox 94 94 94 95 O2 Delivery Room Air Room Air 11/06/18 11/06/18 11/06/18 11/06/18 11:33 11:38 11:53 12:08 Pulse 44 46 46 48 Resp 16 16 20 20 B/P (MAP) 167/72 (103) 156/68 (97) 153/67 (95) 170/75 (106) Pulse Ox 95 95 95 97 O2 Delivery Room Air Room Air 11/06/18 11/06/18 11/06/18 11/06/18 12:23 12:38 13:00 13:15 Temp 98.3 98.3 Pulse 48 46 99 61 Resp 16 20 14 14 B/P (MAP) 170/71 (104) 166/72 (103) 169/48 (88) 163/66 (98) Pulse Ox 96 95 96 96 O2 Delivery Room Air Room Air Room Air 11/06/18 11/06/18 11/06/18 11/06/18 13:30 14:00 14:15 14:30 Pulse 44 45 62 54 Resp 14 14 14 14 B/P (MAP) 166/63 (97) 150/50 (83) 150/59 (89) 159/54 (89) Pulse Ox 97 96 96 97 O2 Delivery Room Air Room Air Room Air Room Air 11/06/18 11/06/18 11/06/18 11/06/18 14:45 15:00 16:00 17:00 Temp 97.9 97.9 Pulse 66 42 49 41 Resp 14 14 14 14 B/P (MAP) 150/55 (86) 136/51 (79) 137/51 (79) 154/54 (87) Pulse Ox 97 93 95 94 O2 Delivery Room Air Room Air Room Air Room Air 11/06/18 11/06/18 11/06/18 11/06/18 18:00 19:00 20:00 20:00 Temp 98.8 98.8 Pulse 58 46 46 Resp 14 15 16 B/P (MAP) 158/51 (86) 165/71 (102) 160/73 (102) Pulse Ox 94 95 96 O2 Delivery Room Air Room Air Room Air Room Air 11/06/18 11/06/18 11/06/18 11/06/18 21:00 22:00 23:00 23:15 Temp 97.8 97.8 Pulse 64 53 38 38 Resp 20 18 15 20 B/P (MAP) 146/56 (86) 152/58 (89) 138/40 (72) 134/58 (83) Pulse Ox 94 95 96 95 O2 Delivery Room Air Room Air Room Air Room Air 11/07/18 11/07/18 11/07/18 11/07/18 00:00 01:00 02:00 03:00 Pulse 38 39 39 38 Resp 15 16 18 15 B/P (MAP) 142/58 (86) 115/54 (74) 120/55 (76) 161/62 (95) Pulse Ox 97 98 97 96 O2 Delivery Room Air Room Air Room Air Room Air 11/07/18 11/07/18 11/07/18 11/07/18 04:00 04:01 04:15 05:00 Temp 97.5 97.5 Pulse 37 38 Resp 16 16 B/P (MAP) 133/58 (83) 140/60 (86) 175/71 (105) Pulse Ox 96 97 O2 Delivery Room Air Room Air Room Air 11/07/18 11/07/18 11/07/18 11/07/18 05:15 06:00 07:00 07:30 Temp 98.1 98.1 Pulse 40 40 42 Resp 18 14 18 B/P (MAP) 155/71 (99) 153/64 (93) 149/54 (85) 159/63 (95) Pulse Ox 96 97 95 O2 Delivery Room Air Room Air Room Air 11/07/18 11/07/18 11/07/18 11/07/18 08:00 08:00 09:01 10:03 Pulse 42 94 Resp 22 18 14 B/P (MAP) 158/66 (96) Pulse Ox 95 96 O2 Delivery Room Air Room Air Nasal Cannula O2 Flow Rate 2.0 Intake and Output 11/06/18 11/06/18 11/07/18 14:59 22:59 06:59 Intake Total 240 ml 480.55 ml 427 ml Output Total 600 ml Balance 240 ml 480.55 ml -173 ml BHUPENDRA MARINELLI MD Nov 07, 2018 10:26
--- NOTE | 2018-11-07 10:36 | CARD ---
MR#: [id number] Date of Study: 11/07/2018 Ordering Physician: CHRIS CHRISTIE, Referring Physician: LYNDSAY HILLS, Tech: APPROVED REPORT HISTORY The Patient is a 73 year-old female with a history of HTN presented with high grade AVB PROCEDURES Insertion Dual Chamber Pacemaker 30 mL of 2% lidocaine was infiltrated into the skin and subcutaneous tissues for local anesthesia. A n incision was made over the left infraclavicular fossa and using blunt dissection and cautery a pock et was created. Venous access was obtained in the left subclavian vein and 9 and 7 [place] sheaths we re inserted. Subsequently, a St. Leonid bipolar active fixation right ventricular lead model Tendril 2088TC/52, SN C [id number] was advanced under fluoroscopic guidance and the tip was positioned in the right ventricular apex. Following this, a St. Leonid bipolar active fixation right atrial lead model 2088TC/46 cm, SN C [id number] was placed in the right atrial appendage under fluoroscopy guidance. The leads were secured into place and were attached to a [employer] Leonid dual-chamber permanent pacemaker generator model Assurity MRI 2272, SN [id number]. This was placed in the pocket that was subsequently closed in 3 layers. Hemost asis was secured. At the end of procedure, the right ventricular lead showed sensing amplitude of 6.6 mV, impedance of 590 ohms and a threshold of 0.5 volts at 0.4ms. The right atrial lead showed a sensing amplitude of 4.4 millivolts, impedance of 540 ohms and a threshold of 0.5 volts at 0.4ms. Patient tolerated the pr ocedure well. There were no immediate complications. PARAMETERS: DDD, 60-130 Paced AV delay 200 Sensed AV delay 150ms CONSCIOUS SEDATION AGENTS Moderate sedation: 67 minutes CONCLUSION Successful insertion of St. Leonid dual chamber pacemaker for high grade AV/3rd degree heart block. Signed by : Chris Christie, Electronically Approved : 11/07/2018 10:35:48
[2018-11-07] MEDS: ONDANSETRON PF 4 MG/2 ML VIAL. IV PRN (10:47)
[2018-11-07] MEDS ORDERED: ACETAMINOPHEN 325 MG TABLET. PO PRN (11:15)
[2018-11-07] MEDS ORDERED: NO ANTICOAGULANT THERAPY. MC PRN (11:15)
--- NOTE | 2018-11-07 11:27 | NUR ---
1015 Returned from labor utilization superintendent,arm immobilizer in place. Family teaching per rep on mobile access for pacer checks. Rep reported "patient teaching in am when reassessing settings
[2018-11-07] MEDS: ACETAMINOPHEN/CODEINE 300/30MG TABLET. PO PRN ×2 (11:37→19:52)
--- NOTE | 2018-11-07 12:29 | EKG ---
[facility] [address] [place] [address] Test Date: 2018-11-07 Test Time: 12:19:45 Pat Name: MARILOU ORTIZ Department: Room: 105 1 Gender: F Insurance Executive: DEISY : 1945 Requested By: CHRIS CHRISTIE Order Number: [id number] Reading MD: Chris Christie MD Measurements Intervals [place] Rate: 78 P: 54 WA: 156 QRS: -88 QRSD: 162 T: 79 QT: 446 QTc: 513 Interpretive Statements SINUS RHYTHM V-PACED Electronically Signed On 11-14-2018 13:47:04 CDT by Chris Christie MD
--- NOTE | 2018-11-07 15:57 | RAD ---
Portable chest, 11/07/2018: HISTORY: Post pacemaker insertion Comparison is made yesterday study. A left-sided transvenous pacing device has been placed with one lead extending into the right ventricle while the tip of the other lead is projected over the superior aspect of the right atrium. The heart is mildly enlarged. The pulmonary vascularity is normal. Loss of definition of the left hemidiaphragm is compatible with mild basilar atelectasis, although the portable technique may be contributing to this appearance. The right chest is clear. No pneumothorax or pleural fluid is evident. IMPRESSION: 1. Mild cardiomegaly. 2. Mild left basilar atelectasis. Electronically signed by: Albert Parada MD (11/07/2018 3:54 PM) [facility]
[2018-11-07] MEDS: hydrALAZINE 20 MG/ML VIAL. IVP PRN (19:52)
[2018-11-08] VITALS (15 sets, daily range): BP systolic 128–186; BP diastolic 48–83
[2018-11-08] MEDS: ACETAMINOPHEN/CODEINE 300/30MG TABLET. PO PRN (03:28)
[2018-11-08 04:51] LABS: BASO # 0.1 x10^3/uL (0.0-0.2); BASO % 1 % (0-3); EOS # 0.3 x10^3/uL (0.0-0.7); EOS % 3 % (0-3); HEMATOCRIT 38.9 % (36.0-47.0); HEMOGLOBIN 12.8 g/dL (12.0-15.5); LYMPH # 2.7 x10^3/uL (1.0-4.8); LYMPH % 35 % (24-48); MEAN CORPUSCULAR HEMOGLOBIN 30 pg (25-35); MEAN CORPUSCULAR HGB CONC 33 g/dL (31-37); MEAN CORPUSCULAR VOLUME 90 fL (79-100); MONO # 0.7 x10^3/uL (0.0-1.1); MONO % 8 % (0-9); NEUT # 4.2 x10^3uL (1.8-7.7); NEUT % 53 % (31-73); PLATELET COUNT 209 x10^3/uL (140-400); RED BLOOD COUNT 4.34 x10^6/uL (3.50-5.40); RED CELL DISTRIBUTION WIDTH 14.4 % (11.5-14.5); WHITE BLOOD COUNT 7.9 x10^3/uL (4.0-11.0)
[2018-11-08 05:27] LABS: ALBUMIN 2.7 g/dL (3.4-5.0); ALBUMIN/GLOBULIN RATIO 0.7 (1.0-1.7); CALCIUM 8.7 mg/dL (8.5-10.1); CREATININE 1.1 mg/dL (0.6-1.0); POTASSIUM 4.1 mmol/L (3.5-5.1); TOTAL BILIRUBIN 0.4 mg/dL (0.2-1.0); TOTAL PROTEIN 6.7 g/dL (6.4-8.2)
[2018-11-08] MEDS: hydrALAZINE 20 MG/ML VIAL. IVP PRN ×3 (06:04→17:40)
[2018-11-08] MEDS: ONDANSETRON PF 4 MG/2 ML VIAL. IV PRN (08:35)
--- NOTE | 2018-11-08 09:09 | PDOC ---
CHRISTIE LAUREN GRADE FOREMAN 11/08/18 0909: CARDIO Progress Notes Date and Time Date of Service 11/08/2018 Time of Evaluation 0850 Subjective Subjective: No Chest Pain, No shortness of breath, No Palpitations, Other ( nauseated this am) Vitals Vitals Vital Signs Date Time Temp Pulse Resp B/P (MAP) Pulse Ox O2 Delivery O2 Flow Rate FiO2 11/08/18 07:54 80 187/88 11/08/18 06:00 12 96 Room Air 11/08/18 04:00 97.7 97.7 11/07/18 10:03 2.0 Weight Weight [ ] Input and Output Intake and Output Intake and Output 11/08/18 07:00 Intake Total 670 ml Output Total 640 ml Balance 30 ml Intake Oral 670 ml Output Urine Total 640 ml Laboratory Labs Laboratory Tests Test 11/08/18 04:00 White Blood Count 7.9 x10^3/uL (4.0-11.0) Red Blood Count 4.34 x10^6/uL (3.50-5.40) Hemoglobin 12.8 g/dL (12.0-15.5) Hematocrit 38.9 % (36.0-47.0) Mean Corpuscular Volume 90 fL (79-100) Mean Corpuscular Hemoglobin 30 pg (25-35) Mean Corpuscular Hemoglobin Concent 33 g/dL (31-37) Red Cell Distribution Width 14.4 % (11.5-14.5) Platelet Count 209 x10^3/uL (140-400) Neutrophils (%) (Auto) 53 % (31-73) Lymphocytes (%) (Auto) 35 % (24-48) Monocytes (%) (Auto) 8 % (0-9) Eosinophils (%) (Auto) 3 % (0-3) Basophils (%) (Auto) 1 % (0-3) Neutrophils # (Auto) 4.2 x10^3uL (1.8-7.7) Lymphocytes # (Auto) 2.7 x10^3/uL (1.0-4.8) Monocytes # (Auto) 0.7 x10^3/uL (0.0-1.1) Eosinophils # (Auto) 0.3 x10^3/uL (0.0-0.7) Basophils # (Auto) 0.1 x10^3/uL (0.0-0.2) Sodium Level 140 mmol/L (136-145) Potassium Level 4.1 mmol/L (3.5-5.1) Chloride Level 105 mmol/L (98-107) Carbon Dioxide Level 24 mmol/L (21-32) Anion Gap 11 (6-14) Blood Urea Nitrogen 19 mg/dL (7-20) Creatinine 1.1 mg/dL (0.6-1.0) Estimated GFR (Cockcroft-Gault) 49.0 BUN/Creatinine Ratio 17 (6-20) Glucose Level 91 mg/dL (70-99) Calcium Level 8.7 mg/dL (8.5-10.1) Total Bilirubin 0.4 mg/dL (0.2-1.0) Aspartate Amino Transf (AST/SGOT) 18 U/L (15-37) Alanine Aminotransferase (ALT/SGPT) 12 U/L (14-59) Alkaline Phosphatase 65 U/L (46-116) Total Protein 6.7 g/dL (6.4-8.2) Albumin 2.7 g/dL (3.4-5.0) Albumin/Globulin Ratio 0.7 (1.0-1.7) Physical Exam HEENT: Neck Supple W Full Motion Chest: Symmetric LUNGS: Other (diminished bases) Heart: S1S2, RRR (paced) Abdomen: Soft N/T Extremities: No Calf Tenderness Neurology: alert, oriented, follow commands Other Exams Left chest incision intact with steristrips, no oozing, swelling or erythema, neurovascular status to LUE intact, sling in place Assessment Assessment 1. High grade AVB - EF and WM nml. S/P Dual chamber PPM, normal function, no complications 2. Chest pain/HEARN: none further since PPM placement. Nause noted due to codeine 3. Subclinical Hypothyroidism 4. HTN: labile 5. HLP Recommendations 1. Will plan for outpt MPI. Follow up in 2 weeks for wound check 2. Start on lisinopril and HCTZ, lipitor and ASA. 3. Post Pacemaker instruction. 4. OT and PT eval and note any need for home health. 5. Encouraged HBPM CHRIS CHRISTIE MD 11/08/18 1443: CARDIO Progress Notes Plan Plan Pt. seen and examined. Agree with above SCHOOL TEACHER note. 73 y.o woman s/p pacer for high grade av block Now doing well. Device site appears c/d/i. BP improved with lisinopril. PT/OT evaluating patient, home likely tomorrow. Ok to DC out of ICU. CHRISTIE LAUREN APRN Nov 08, 2018 09:09 CHRIS CHRISTIE MD Nov 08, 2018 14:43
--- NOTE | 2018-11-08 10:05 | PDOC ---
PROGRESS NOTES History of Present Illness History of Present Illness Assessment/Plan SEVERE HTN emergency High grade AVB Echo with normal EF dual chamber pacer placed Long-standing untreated hypertension Chest discomfort PLAN: ICU, cards consulted Hydralazine IV PRN Nitro drip titrate/ off cardene drip echo Compliance about medications needs pcp soon 37 min cc time Vitals Vitals Vital Signs Date Time Temp Pulse Resp B/P (MAP) Pulse Ox O2 Delivery O2 Flow Rate FiO2 11/08/18 07:54 80 187/88 11/08/18 06:00 12 96 Room Air 11/08/18 04:00 97.7 97.7 11/07/18 10:03 2.0 Physical Exam General: Alert, Oriented X3, Cooperative, No acute distress, mild distress Heart: Regular rate, Normal S1, No murmurs, Other (bradycardic, no gallos, clicks or rubs. ) Lungs: Clear Abdomen: Normal bowel sounds, Soft, No tenderness Extremities: No clubbing, No cyanosis, Other (palpable) Skin: No rashes, No breakdown, No significant lesion Labs LABS CHEST PA LATERAL History: 1 day post pacemaker implantation. Comparison with November 07, 2018. Dual-lead pacemaker again identified. There is improved expansion of both lungs on today's study. Small left pleural effusion. No evidence of pneumothorax. No evidence of consolidating infiltrate. The cardiac silhouette is upper limits normal in width. IMPRESSION: Small left pleural effusion. Electronically signed by: Leroy Godoy MD (11/08/2018 10:05 AM) [facility] Laboratory Tests Test 11/08/18 04:00 White Blood Count 7.9 x10^3/uL (4.0-11.0) Red Blood Count 4.34 x10^6/uL (3.50-5.40) Hemoglobin 12.8 g/dL (12.0-15.5) Hematocrit 38.9 % (36.0-47.0) Mean Corpuscular Volume 90 fL (79-100) Mean Corpuscular Hemoglobin 30 pg (25-35) Mean Corpuscular Hemoglobin Concent 33 g/dL (31-37) Red Cell Distribution Width 14.4 % (11.5-14.5) Platelet Count 209 x10^3/uL (140-400) Neutrophils (%) (Auto) 53 % (31-73) Lymphocytes (%) (Auto) 35 % (24-48) Monocytes (%) (Auto) 8 % (0-9) Eosinophils (%) (Auto) 3 % (0-3) Basophils (%) (Auto) 1 % (0-3) Neutrophils # (Auto) 4.2 x10^3uL (1.8-7.7) Lymphocytes # (Auto) 2.7 x10^3/uL (1.0-4.8) Monocytes # (Auto) 0.7 x10^3/uL (0.0-1.1) Eosinophils # (Auto) 0.3 x10^3/uL (0.0-0.7) Basophils # (Auto) 0.1 x10^3/uL (0.0-0.2) Sodium Level 140 mmol/L (136-145) Potassium Level 4.1 mmol/L (3.5-5.1) Chloride Level 105 mmol/L (98-107) Carbon Dioxide Level 24 mmol/L (21-32) Anion Gap 11 (6-14) Blood Urea Nitrogen 19 mg/dL (7-20) Creatinine 1.1 mg/dL (0.6-1.0) Estimated GFR (Cockcroft-Gault) 49.0 BUN/Creatinine Ratio 17 (6-20) Glucose Level 91 mg/dL (70-99) Calcium Level 8.7 mg/dL (8.5-10.1) Total Bilirubin 0.4 mg/dL (0.2-1.0) Aspartate Amino Transf (AST/SGOT) 18 U/L (15-37) Alanine Aminotransferase (ALT/SGPT) 12 U/L (14-59) Alkaline Phosphatase 65 U/L (46-116) Total Protein 6.7 g/dL (6.4-8.2) Albumin 2.7 g/dL (3.4-5.0) Albumin/Globulin Ratio 0.7 (1.0-1.7) Assessment and Plan Assessmemt and Plan Problems Medical Problems: (1) Chest pain Status: Acute (2) Hypertension Status: Acute Comment Review of Relevant I have reviewed the following items carissa (where applicable) has been applied. Labs Laboratory Tests Test 11/06/18 12:59 11/06/18 14:00 11/06/18 17:40 11/08/18 04:00 Nasal Screen MRSA (PCR) Negative (Negative) Troponin I Quantitative 0.030 ng/mL (0.000-0.055) 0.020 ng/mL (0.000-0.055) White Blood Count 7.9 x10^3/uL (4.0-11.0) Red Blood Count 4.34 x10^6/uL (3.50-5.40) Hemoglobin 12.8 g/dL (12.0-15.5) Hematocrit 38.9 % (36.0-47.0) Mean Corpuscular Volume 90 fL (79-100) Mean Corpuscular Hemoglobin 30 pg (25-35) Mean Corpuscular Hemoglobin Concent 33 g/dL (31-37) Red Cell Distribution Width 14.4 % (11.5-14.5) Platelet Count 209 x10^3/uL (140-400) Neutrophils (%) (Auto) 53 % (31-73) Lymphocytes (%) (Auto) 35 % (24-48) Monocytes (%) (Auto) 8 % (0-9) Eosinophils (%) (Auto) 3 % (0-3) Basophils (%) (Auto) 1 % (0-3) Neutrophils # (Auto) 4.2 x10^3uL (1.8-7.7) Lymphocytes # (Auto) 2.7 x10^3/uL (1.0-4.8) Monocytes # (Auto) 0.7 x10^3/uL (0.0-1.1) Eosinophils # (Auto) 0.3 x10^3/uL (0.0-0.7) Basophils # (Auto) 0.1 x10^3/uL (0.0-0.2) Sodium Level 140 mmol/L (136-145) Potassium Level 4.1 mmol/L (3.5-5.1) Chloride Level 105 mmol/L (98-107) Carbon Dioxide Level 24 mmol/L (21-32) Anion Gap 11 (6-14) Blood Urea Nitrogen 19 mg/dL (7-20) Creatinine 1.1 mg/dL (0.6-1.0) Estimated GFR (Cockcroft-Gault) 49.0 BUN/Creatinine Ratio 17 (6-20) Glucose Level 91 mg/dL (70-99) Calcium Level 8.7 mg/dL (8.5-10.1) Total Bilirubin 0.4 mg/dL (0.2-1.0) Aspartate Amino Transf (AST/SGOT) 18 U/L (15-37) Alanine Aminotransferase (ALT/SGPT) 12 U/L (14-59) Alkaline Phosphatase 65 U/L (46-116) Total Protein 6.7 g/dL (6.4-8.2) Albumin 2.7 g/dL (3.4-5.0) Albumin/Globulin Ratio 0.7 (1.0-1.7) Laboratory Tests Test 11/08/18 04:00 White Blood Count 7.9 x10^3/uL (4.0-11.0) Red Blood Count 4.34 x10^6/uL (3.50-5.40) Hemoglobin 12.8 g/dL (12.0-15.5) Hematocrit 38.9 % (36.0-47.0) Mean Corpuscular Volume 90 fL (79-100) Mean Corpuscular Hemoglobin 30 pg (25-35) Mean Corpuscular Hemoglobin Concent 33 g/dL (31-37) Red Cell Distribution Width 14.4 % (11.5-14.5) Platelet Count 209 x10^3/uL (140-400) Neutrophils (%) (Auto) 53 % (31-73) Lymphocytes (%) (Auto) 35 % (24-48) Monocytes (%) (Auto) 8 % (0-9) Eosinophils (%) (Auto) 3 % (0-3) Basophils (%) (Auto) 1 % (0-3) Neutrophils # (Auto) 4.2 x10^3uL (1.8-7.7) Lymphocytes # (Auto) 2.7 x10^3/uL (1.0-4.8) Monocytes # (Auto) 0.7 x10^3/uL (0.0-1.1) Eosinophils # (Auto) 0.3 x10^3/uL (0.0-0.7) Basophils # (Auto) 0.1 x10^3/uL (0.0-0.2) Sodium Level 140 mmol/L (136-145) Potassium Level 4.1 mmol/L (3.5-5.1) Chloride Level 105 mmol/L (98-107) Carbon Dioxide Level 24 mmol/L (21-32) Anion Gap 11 (6-14) Blood Urea Nitrogen 19 mg/dL (7-20) Creatinine 1.1 mg/dL (0.6-1.0) Estimated GFR (Cockcroft-Gault) 49.0 BUN/Creatinine Ratio 17 (6-20) Glucose Level 91 mg/dL (70-99) Calcium Level 8.7 mg/dL (8.5-10.1) Total Bilirubin 0.4 mg/dL (0.2-1.0) Aspartate Amino Transf (AST/SGOT) 18 U/L (15-37) Alanine Aminotransferase (ALT/SGPT) 12 U/L (14-59) Alkaline Phosphatase 65 U/L (46-116) Total Protein 6.7 g/dL (6.4-8.2) Albumin 2.7 g/dL (3.4-5.0) Albumin/Globulin Ratio 0.7 (1.0-1.7) Medications Current Medications Aspirin (Children'S Aspirin) 324 mg 1X ONCE PO Last administered on 11/06/18at 09:51; Start 11/06/18 at 09:45; Stop 11/06/18 at 09:46; Status DC Nitroglycerin/ Dextrose 250 ml @ 3 mls/hr 1X ONCE IV Last administered on 11/06at 09:57; Start 11/06/18 at 09:45; Stop 11/09/18 at 21:04 Nicardipine HCl 50 mg/Sodium Chloride 250 ml @ 25 mls/hr CONT PRN IV SEE I/O RECORD Last administered on 11/06/18at 10:45; Start 11/06/18 at 10:30; Stop 11/06 at 16:35; Status DC Acetaminophen (Tylenol) 500 mg PRN Q6HRS PRN PO MILD PAIN / TEMP; Start at 12:30; Stop 11/07/18 at 15:01; Status DC Acetaminophen/ Codeine Phosphate (Tylenol #3) 1 tab PRN Q6HRS PRN PO MODERATE PAIN Last administered on 11/08/18at 03:28; Start 11/06/18 at 12:30 Morphine Sulfate (Morphine Sulfate) 2 mg PRN Q2HR PRN IV PAIN; Start 11/06/18 at 12:30; Stop 11/07/18 at 15:01; Status DC Hydralazine HCl (Apresoline Inj) 10 mg PRN Q4HRS PRN IVP ELEVATED BP, SEE COMMENTS Last administered on 11/08/18at 07:54; Start 11/06/18 at 12:30 Ibuprofen (Motrin) 400 mg PRN Q6HRS PRN PO INFLAMMATION; Start 11/06/18 at 12: 30 Ondansetron HCl (Zofran) 4 mg PRN Q6HRS PRN IV NAUSEA/VOMITING Last administered on 11/08/18at 08:35; Start 11/06/18 at 12:30 Ondansetron HCl (Zofran Odt) 4 mg PRN Q6HRS PRN PO NAUSEA/VOMITING; Start 11/06 at 12:30; Stop 11/07/18 at 15:01; Status DC Nicardipine HCl 50 mg/Sodium Chloride 250 ml @ 25 mls/hr CONT PRN IV SEE I/O RECORD Last administered on 11/06/18at 17:32; Start 11/06/18 at 16:45; Stop 11/07 at 15:01; Status DC Atropine Sulfate (ATROPINE 0.5mg SYRINGE) 0.5 mg PRN 1X PRN IV symptomatic bradycardia; Start 11/06/18 at 17:15; Stop 11/07/18 at 15:01; Status DC Midazolam HCl (Versed) 2 mg 1X ONCE IV Last administered on 11/07/18at 09:01; Start 11/07/18 at 08:00; Stop 11/07/18 at 08:04; Status DC Fentanyl Citrate (Fentanyl 2ml Vial) 100 mcg 1X ONCE IV Last administered on at 09:01; Start 11/07/18 at 08:00; Stop 11/07/18 at 08:04; Status DC Lidocaine/ Epinephrine (LIDOCAINE 1%-EPI 1:100,000 Multi-Dose) 20 ml 1X ONCE IJ ; Start 11/07/18 at 08:00; Stop 11/07/18 at 08:01; Status Cancel Bacitracin 29057 unit/Sodium Chloride 250 ml @ 0 mls/hr 1X ONCE IRR Last administered on 11/07/18at 09:35; Start 11/07/18 at 08:30; Stop 11/07/18 at 08:31 ; Status DC Cefazolin Sodium 50 ml @ 100 mls/hr 1X ONCE IV Last administered on at 08:45; Start 11/07/18 at 08:00; Stop 11/07/18 at 08:29; Status DC Lidocaine/ Epinephrine (LIDOCAINE 2%-EPI 1:100,000 multi-dose) 20 ml STK-MED ONCE .ROUTE ; Start 11/07/18 at 08:03; Stop 11/07/18 at 08:08; Status DC Midazolam HCl (Versed) 2 mg STK-MED ONCE .ROUTE ; Start 11/07/18 at 08:03; Stop 11/07/18 at 08:08; Status DC Fentanyl Citrate (Fentanyl 2ml Vial) 100 mcg STK-MED ONCE .ROUTE ; Start at 08:03; Stop 11/07/18 at 08:08; Status DC Cefazolin Sodium 50 ml @ As Directed STK-MED ONCE IV ; Start 11/07/18 at 08:04; Stop 11/07/18 at 08:08; Status DC Lidocaine/ Epinephrine (LIDOCAINE 2%-EPI 1:100,000 multi-dose) 20 ml 1X ONCE IJ Last administered on 11/07/18at 09:02; Start 11/07/18 at 09:00; Stop at 09:07; Status DC Info (No Anticoagulant Therapy) 1 ea CONT PRN PRN MC PER PROTOCOL; Start at 11:15 Acetaminophen (Tylenol) 650 mg PRN Q6HRS PRN PO MILD PAIN; Start 11/07/18 at 11 :15 Lisinopril (Prinivil) 20 mg DAILY PO ; Start 11/08/18 at 09:00 Vitals/I & O Vital Sign - Last 24 Hours 11/07/18 11/07/18 11/07/18 11/07/18 10:15 10:30 10:45 11:00 Resp 21 26 30 29 B/P (MAP) 122/48 (72) 127/55 (79) 137/80 (99) 148/81 (103) Pulse Ox 94 95 97 96 O2 Delivery Room Air Room Air Room Air Room Air 11/07/18 11/07/18 11/07/18 11/07/18 11:30 11:37 12:00 12:00 Temp 98.3 98.3 Resp 30 23 B/P (MAP) 152/99 (116) 140/65 (90) Pulse Ox 97 97 92 O2 Delivery Room Air Room Air Room Air Room Air 11/07/18 11/07/18 11/07/18 11/07/18 13:00 14:00 15:00 16:00 Temp 98.6 98.6 Pulse 80 86 76 70 Resp 26 15 13 B/P (MAP) 132/59 (83) 143/60 (87) 133/60 (84) 149/77 (101) Pulse Ox 94 O2 Delivery Room Air Room Air Room Air Room Air 11/07/18 11/07/18 11/07/18 11/07/18 16:00 17:00 19:00 19:52 Pulse 76 72 Resp 23 B/P (MAP) 139/58 (85) 174/67 (102) Pulse Ox 95 97 96 O2 Delivery Room Air Room Air Room Air Room Air 11/07/18 11/07/18 11/07/18 11/07/18 19:52 20:00 20:00 21:00 Temp 97.5 97.5 Pulse 73 76 82 Resp 23 21 B/P (MAP) 173/67 132/68 (89) 149/65 (93) Pulse Ox 97 97 O2 Delivery Room Air Room Air Room Air 11/07/18 11/07/18 11/07/18 11/08/18 22:00 23:00 23:59 00:00 Temp 98.2 98.2 Pulse 73 70 73 Resp 13 13 20 B/P (MAP) 127/54 (78) 136/59 (84) 133/55 (81) Pulse Ox 95 95 97 O2 Delivery Room Air Room Air Room Air Room Air 11/08/18 11/08/18 11/08/18 11/08/18 01:00 02:00 03:00 03:28 Pulse 69 66 70 Resp 15 21 B/P (MAP) 143/61 (88) 145/56 (85) 173/75 (107) Pulse Ox 95 95 96 96 O2 Delivery Room Air Room Air Room Air Room Air 11/08/18 11/08/18 11/08/18 11/08/18 04:00 04:00 04:28 05:00 Temp 97.7 97.7 Pulse 67 66 Resp 13 12 B/P (MAP) 159/61 (93) 164/61 (95) Pulse Ox 97 97 94 O2 Delivery Room Air Room Air Room Air Room Air 11/08/18 11/08/18 11/08/18 06:00 06:04 07:54 Pulse 66 66 80 Resp 12 B/P (MAP) 171/76 (107) 171/76 187/88 Pulse Ox 96 O2 Delivery Room Air Intake and Output 11/07/18 11/07/18 11/08/18 15:00 23:00 07:00 Intake Total 370 ml 300 ml Output Total 250 ml 390 ml Balance 120 ml -90 ml BHUPENDRA MARINELLI MD Nov 08, 2018 10:05
--- NOTE | 2018-11-08 10:08 | RAD ---
CHEST PA LATERAL History: 1 day post pacemaker implantation. Comparison with November 07, 2018. Dual-lead pacemaker again identified. There is improved expansion of both lungs on today's study. Small left pleural effusion. No evidence of pneumothorax. No evidence of consolidating infiltrate. The cardiac silhouette is upper limits normal in width. IMPRESSION: Small left pleural effusion. Electronically signed by: Leroy Godoy MD (11/08/2018 10:05 AM) [id number]
[2018-11-08] MEDS: LISINOPRIL 20 MG TABLET PO SCH (10:33)
[2018-11-08] MEDS: hydroCHLOROthiazide 12.5 MG CAPSULE PO SCH (15:00)
[2018-11-08] MEDS: ASPIRIN ENTERIC COATED 81 MG TABLET.DR. PO SCH (15:00)
--- NOTE | 2018-11-08 16:33 | NUR ---
[id number] Fulminating episodes nausea w small amount emesis. IV meds w eventual relief. Post op pacer check w rate adjustment to 80 otherwise w/o other changes required. Sling off w reinforcement of restrictions. PA/Lateral x-ray confirms proper wire placement. Correct FPM on monitor.Tolerates in room and ellis activity. PT "suggests " additional 24 h for comfort/ease in independent care.Will be staying w son/his on discharge. Printed updated information on pacer care as well as follow up appointment/time for wound check on sheet . To 670 prer w/c.Son aware of room transfer and will notify other family relatives. Condition greatly improved
--- NOTE | 2018-11-08 16:45 | NUR ---
Pt transferred to room 670 via wheelchair. Received report from ALFRED Urban. This RN spoke with Dr. Fontana about the patient wearing a heart monitor when transferring to this unit, he stated she does not need to wear one. All belongings left with patient at time of transfer.
--- NOTE | 2018-11-08 19:48 | NUR ---
not charted by day shift Addendum: 11/08/18 at 1949 by ROSAMARIA BARRAGAN RN Amended: Links added.
[2018-11-08] MEDS ORDERED: ATORVASTATIN CALCIUM 20 MG TABLET PO SCH (21:00)
[2018-11-09 03:08] VITALS: BP 142/61
[2018-11-09 05:44] LABS: BASO % 1 % (0-3); EOS # 0.2 x10^3/uL (0.0-0.7); EOS % 3 % (0-3); HEMATOCRIT 39.2 % (36.0-47.0); HEMOGLOBIN 13.1 g/dL (12.0-15.5); LYMPH # 2.1 x10^3/uL (1.0-4.8); LYMPH % 32 % (24-48); MEAN CORPUSCULAR HEMOGLOBIN 30 pg (25-35); MEAN CORPUSCULAR HGB CONC 33 g/dL (31-37); MEAN CORPUSCULAR VOLUME 90 fL (79-100); MONO # 0.5 x10^3/uL (0.0-1.1); MONO % 8 % (0-9); NEUT # 3.8 x10^3uL (1.8-7.7); NEUT % 57 % (31-73); PLATELET COUNT 207 x10^3/uL (140-400); RED BLOOD COUNT 4.36 x10^6/uL (3.50-5.40); RED CELL DISTRIBUTION WIDTH 14.7 % (11.5-14.5); WHITE BLOOD COUNT 6.6 x10^3/uL (4.0-11.0)
[2018-11-09 06:07] LABS: CALCIUM 8.8 mg/dL (8.5-10.1); GFR 54.7; POTASSIUM 3.7 mmol/L (3.5-5.1)
[2018-11-09 07:00] VITALS: BP 149/64
[2018-11-09] MEDS: ASPIRIN ENTERIC COATED 81 MG TABLET.DR. PO SCH (09:57)
[2018-11-09] MEDS: hydroCHLOROthiazide 12.5 MG CAPSULE PO SCH (09:57)
[2018-11-09] MEDS: LISINOPRIL 20 MG TABLET PO SCH (09:58)
[2018-11-09 11:00] VITALS: BP 141/63
[2018-11-09] MEDS ORDERED: ATOR20TA58 PO (12:36)
[2018-11-09] MEDS ORDERED: HYDR12.575 PO (12:36)
[2018-11-09] MEDS ORDERED: LISI-130 PO (12:36)
[2018-11-09] MEDS ORDERED: ASPI-612 PO (12:36)
--- NOTE | 2018-11-09 12:38 | SNU/HH DC ---
DISCHARGE WITH HOME HEALTH DISCHARGE INFORMATION: Discharge Date: Nov 09, 2018 Final Diagnosis: Problems Medical Problems: (1) Chest pain Status: Acute (2) Hypertension Status: Acute Condition on Discharge: Stable CODE STATUS: Code Status: Full HOME HEALTH: Face to Face: I certify this patient is under my care and that I, or a nurse practitioner or physician's tax accounting assistant working with me, had a face to face encounter that meets the physician face to face encounter requirements with this patient on 11/09 Medical Complications: CHF (with accel htn) Physical Therapy For: Evalulation/Treatment POST DISCHARGE ORDERS: Activity Instructions for Disc: No restrictions DIET AFTER DISCHARGE: Cardiac CHECKS AFTER DISCHARGE: Comment: pacemaker placed FOLLOW-UP: Follow up with: cardiology 11/20 TREATMENT/EQUIPMENT ORDERS: Adaptive Equipment Issued: None CERTIFICATION STATEMENT: Certification Statement: Certification Statement: Based on the above finding, I certify that this patient is confined to the home and needs intermittent mcfp care, physical therapy and/or speech therapy, or continues to need occupational therapy.~ This patient is under my care, and I have initiated the establishment of the plan of care.~ This patient will be followed by myself or a community physician who will periodically review the plan of care. Home Meds Active Scripts Lisinopril (LISINOPRIL) 40 Mg Tablet, 20 MG PO DAILY for high blood pressure, # 30 TAB 2 Refills Prov:TATYANA ADAMS MD 11/09/18 Hydrochlorothiazide (HYDROCHLOROTHIAZIDE CAPSULE ) 12.5 Mg Capsule, 12.5 MG PO DAILY for blood pressure, #30 CAP 2 Refills Prov:TATYANA ADAMS MD 11/09/18 Aspirin (ASPIRIN EC) 81 Mg Tablet.dr, 81 MG PO DAILYWBKFT for cardiac , #100 TAB.SR Prov:TATYANA ADAMS MD 11/09/18 Atorvastatin Calcium (ATORVASTATIN CALCIUM) 20 Mg Tablet, 20 MG PO QHS for cholesterol, #30 TAB 2 Refills Prov:TATYANA ADAMS MD 11/09/18 TATYANA ADAMS MD Nov 09, 2018 12:38
[2018-11-09 15:00] VITALS: BP 192/76
[2018-11-09] MEDS ORDERED: LISINOPRIL 20 MG TABLET PO ONE (15:00)
--- NOTE | 2018-11-20 14:13 | PDOC3 ---
Discharge Summary Visit Information Date of Admission: Nov 06, 2018 Date of Discharge: Nov 09, 2018 Admitting Diagnosis: chest pain Final Diagnosis HTN emergency High grade AV Block and symptomatic bradycardia Echo with normal EF dual chamber pacer placed Long-standing untreated hypertension, angina, will stratify risk as outpatient Problems Medical Problems: (1) Chest pain Status: Acute (2) Hypertension Status: Acute Brief Hospital Course Allergies Allergies Coded Allergies Type Severity Reaction Last Updated Verified No Known Drug Allergies 11/06/18 No Brief Hospital Course Ms Saini is a 73 year old female admit w/ chest pain and bradycardic with accelerated hypertension. had increased episodes of pain over weeks. new dyspnea and fatigue. cards consulted admit to ICU, cardene gtt, nitro gtt, dual chamber pacer placed for symptomatic gabino, pt improved, plan outpatient MPI stress test Discharge Information Condition at Discharge: Improved Follow Up: Weeks Scheduled Aspirin (Aspirin Ec) 81 Mg Tablet.dr, 81 MG PO DAILYWBKFT for cardiac , #100 Prescribed by: TATYANA ADAMS on 11/09/18 1236 Atorvastatin Calcium (Atorvastatin Calcium) 20 Mg Tablet, 20 MG PO QHS for cholesterol, #30 Ref 2 Prescribed by: TATYANA ADAMS on 11/09/18 1236 Hydrochlorothiazide (Hydrochlorothiazide Capsule ) 12.5 Mg Capsule, 12.5 MG PO DAILY for blood pressure, #30 Ref 2 Prescribed by: TATYANA ADAMS on 11/09/18 1236 Lisinopril (Lisinopril) 40 Mg Tablet, 20 MG PO DAILY for high blood pressure, # 30 Ref 2 Prescribed by: TATYANA ADAMS on 11/09/18 1236 Patient Instructions Patient Instructions time > 30 min face to face ECHO: The left ventricular systolic function is normal and the ejection fraction is within normal range. The Ejection Fraction is >55%. There is grossly normal LV segmental wall motion. Doppler and Color-flow revealed mild mitral regurgitation. Doppler and Color Flow revealed mild tricuspid regurgitation. RVSP 38 mm Hg. There is a trace pericardial effusion. TATYANA ADAMS MD Nov 20, 2018 14:12
== END 2018-11-09 15:42 | disposition home health service (06) | DRG 243 ==
LOC: ER 09:16 → 1 WEST ICU 11:00 → 6 SOUTH 11-08 16:42
PROVIDERS: ADMIT Internal Medicine; ATTEND Internal Medicine
PROC: 0JH606Z Insertion of Pacemaker, Dual Chamber into Chest Subcutaneous Tissue and Fascia, Open Approach (ICD-10-PCS; principal; 2018-11-07)
PROC: 02H63JZ Insertion of Pacemaker Lead into Right Atrium, Percutaneous Approach (ICD-10-PCS; 2018-11-07)
PROC: 02HK3JZ Insertion of Pacemaker Lead into Right Ventricle, Percutaneous Approach (ICD-10-PCS; 2018-11-07)
DX: I44.2 Atrioventricular block, complete (principal); I16.1 Hypertensive emergency; J98.11 Atelectasis; J90 Pleural effusion, not elsewhere classified; I10 Essential (primary) hypertension; E03.9 Hypothyroidism, unspecified; E78.5 Hyperlipidemia, unspecified; Z60.2 Problems related to living alone; Z90.710 Acquired absence of both cervix and uterus; Z79.899 Other long term (current) drug therapy; Z82.49 Family history of ischemic heart disease and other diseases of the circulatory system
CPT/HCPCS: 33208; 36415; 71045; 71046; 80048; 80053; 80061; 82553; 83735; 83880; 84439; 84443; 84484; 85025; 85610; 87641; 93005; 93306; 96365; 96368; 99152; 99153; C1785; C1898; J0360; J0690; J2250; J2405; J3010; J3490; J7050; 97116; 97530; 99285-25; J7030

== ENCOUNTER 2018-12-29 22:13 | Emergency (ER) | payer OTHER, SELFPAY ==
[~2018-12-29] VITALS: Ht 149.9 cm; Wt 59.0 kg
[~2018-12-29 22:13] MED LIST: ASPI-612 PO; ATOR20TA58 PO; HYDR12.575 PO; LISI-130 PO
--- NOTE | 2018-12-29 23:15 | PHYS DOC ---
Past Medical History Past Medical History: A-Fib, High Cholesterol, Hypertension Additional Past Medical Histor: "enlarged heart", pt not taking medications for years Past Surgical History: , Hysterectomy Alcohol Use: None Drug Use: None Adult General Chief Complaint Chief Complaint: SKIN RASH/ABSCESS [facility] Patient is a 73 year old F who presents with skin redness since this morning. She states that the redness is located around her pacemaker which she had put in around November 06. She denies and fever, chills, or pain. Her son states that he thinks he noticed a suture that may have been protruding from the site. Review of Systems Review of Systems Constitutional: Denies fever or chills [] Eyes: Denies change in visual acuity, redness, or eye pain [] HENT: Denies nasal congestion or sore throat [] Respiratory: Denies cough or shortness of breath [] Cardiovascular: No additional information not addressed in HPI [] GI: Denies abdominal pain, nausea, vomiting, bloody stools or diarrhea [] Neurologic: Denies headache, focal weakness or sensory changes [] Endocrine: Denies polyuria or polydipsia [] All other systems were reviewed and found to be within normal limits, except as documented in this note. Allergies Allergies Allergies Coded Allergies Type Severity Reaction Last Updated Verified No Known Drug Allergies 11/06/18 No Physical Exam Physical Exam Constitutional: Well developed, well nourished, no acute distress, non-toxic appearance. [] HENT: Normocephalic, atraumatic, bilateral external ears normal, oropharynx moist, no oral exudates, nose normal. [] Eyes: PERRLA, EOMI, conjunctiva normal, no discharge. [] Neck: Normal range of motion, no tenderness, supple, no stridor. [] Cardiovascular:Heart rate regular rhythm, no murmur [] Lungs & Thorax: Bilateral breath sounds clear to auscultation [] Abdomen: Bowel sounds normal, soft, no tenderness, no masses, no pulsatile masses. [] Skin: Erythema surrounding the incision, 3 small scabs were gently assessed with a Q-Tip and they fell off, small amount of exudate was released underneath them. Base of then incision was visualized, subcutaneous only. SLIGHT INCISION DEFECT closed with steristrips Back: No tenderness, no CVA tenderness. [] Extremities: No tenderness, no cyanosis, no clubbing, ROM intact, no edema. [] Neurologic: Alert and oriented X 3, normal motor function, normal sensory function, no focal deficits noted. [] Psychologic: Affect normal, judgement normal, mood normal. [] Current Patient Data Vital Signs Vital Signs Date Time Temp Pulse Resp B/P (MAP) Pulse Ox O2 Delivery O2 Flow Rate FiO2 12/29/18 23:24 78 130/61 (84) 96 Room Air 12/29/18 22:22 97.4 16 97.4 EKG EKG [] Radiology/Procedures Radiology/Procedures [] Course & Med Decision Making Course & Med Decision Making Pertinent Labs and Imaging studies reviewed. (See chart for details) []very likely local incision infection , appeared strongly subq on examination in er tonight. wound culture collected rx; bactrim and keflex advised call outside salesman tomorrow for f/u within 2-3 days for wound re-check no fever i dont think this is pocket infection clinically. Dragon Disclaimer Dragon Disclaimer This electronic medical record was generated, in whole or in part, using a voice recognition dictation system. Departure Departure Impression: Primary Impression: Wound infection Disposition: HOME, SELF-CARE Condition: STABLE Referrals: UNKNOWN PCP NAME (PCP) Scripts Sulfamethoxazole/Trimethoprim (BACTRIM 400-80 MG TABLET) 1 Each Tablet 1 TAB PO BID, #14 TAB Prov: DREW RIVERS MD 12/29/18 Cephalexin (CEPHALEXIN) 500 Mg Tablet 1 TAB PO QID, #28 TAB Prov: DREW RIVERS MD 12/29/18 DREW RIVERS MD December 29, 2018 23:15
[2018-12-29] MEDS ORDERED: CEPH500T PO (23:16)
[2018-12-29] MEDS ORDERED: SULF1TAB23 PO (23:16)
[2018-12-29 23:24] VITALS: BP 130/61
== END 2018-12-29 23:30 | disposition home or self-care (01) ==
LOC: ER 22:13
DX: T82.7XXA Infection and inflammatory reaction due to other cardiac and vascular devices, implants and grafts, initial encounter (principal); I48.91 Unspecified atrial fibrillation; E78.00 Pure hypercholesterolemia, unspecified; I10 Essential (primary) hypertension; Y71.8 Miscellaneous cardiovascular devices associated with adverse incidents, not elsewhere classified; Y92.89 Other specified places as the place of occurrence of the external cause
CPT/HCPCS: 87071; 87075; 99284

== ENCOUNTER → 2020-12-10 | Outpatient (CLI) | payer BC ==
[~2020-12-10] MED LIST changes: -ASPI-612 PO; +ASPI-886 PO; +CEPH500T PO; +SULF1TAB23 PO
--- NOTE | 2020-12-10 16:57 | CARD ---
MR#: [id number] Date of Study: 12/10/2020 Ordering Physician: CHRIS CHRISTIE, Referring Physician: CHRIS CHRISTIE, Tech: Jessika Davis [facility] APPROVED REPORT EXAM: Two-dimensional and M-mode echocardiogram with Doppler and color Doppler. Other Information Quality : Technically LimitedHR: 67bpm Rhythm : Pacemaker INDICATION Arrhythmia RISK FACTORS Hypertension Obesity 2D DIMENSIONS RVDd2.4 (2.9-3.5cm)Left Atrium(2D)2.4 (1.6-4.0cm) IVSd1.0 (0.7-1.1cm)Aortic Root(2D)2.1 (2.0-3.7cm) LVDd3.1 (3.9-5.9cm)LVOT Diameter1.8 (1.8-2.4cm) PWd0.8 (0.7-1.1cm)LVDs1.6 (2.5-4.0cm) FS (%) 47.4 %SV30.2 ml LVEF(%)80.2 (>50%) Aortic Valve AoV Peak Deandre.154.0cm/sAoV VTI31.7cm AO Peak GR.9.5mmHgLVOT Peak Deandre.96.5cm/s AO Mean GR.4mmHgAVA (VMAX)1.59cm2 Mitral Valve MV E Ntruxpyy277.1cm/sMV DECEL QFEV708fa MV A Tnewywup464.9cm/sE/A Ratio0.8 Tricuspid Valve TR P. Fxtnmvtw117dg/sTR Peak Gr.21mmHg LEFT VENTRICLE The left ventricle is normal size. There is normal left ventricular wall thickness. The left ventricu lar systolic function is normal. Estimated ejection fraction 55-60%. There is normal LV segmental wa ll motion. Transmitral Doppler flow pattern is Grade I-abnormal relaxation pattern. RIGHT VENTRICLE The right ventricle is normal size. The right ventricle is mildly hypertrophied. The right ventricula r systolic function is normal. ATRIA The left atrium size is normal. The right atrium size is normal. The interatrial septum is intact wit h no evidence for an atrial septal defect or patent foramen ovale as noted on 2-D or Doppler imaging. AORTIC VALVE The aortic valve is normal in structure and function. Doppler and Color Flow revealed no significant aortic regurgitation. There is no significant aortic valvular stenosis. MITRAL VALVE The mitral valve is normal in structure and function. There is no evidence of mitral valve prolapse. There is no mitral valve stenosis. Doppler and Color-flow revealed mild mitral regurgitation. TRICUSPID VALVE The tricuspid valve is normal in structure and function. Doppler and Color Flow revealed mild tricusp id regurgitation. Estimated PAP 25 mmHg. There is no tricuspid valve stenosis. PULMONIC VALVE The pulmonary valve is normal in structure and function. Doppler and Color Flow revealed no pulmonic valvular regurgitation. GREAT VESSELS The aortic root is normal in size. The ascending aorta is normal in size. The IVC is normal in size a nd collapses >50% with inspiration. PERICARDIAL EFFUSION There is no evidence of significant pericardial effusion. Critical Notification Critical Value: No <Conclusion> The left ventricular systolic function is normal. Estimated ejection fraction 55-60%. There is normal LV segmental wall motion. Transmitral Doppler flow pattern is Grade I-abnormal relaxation pattern. Mild mitral regurgitation. Mild tricuspid regurgitation. Estimated PAP 25 mmHg. There is no evidence of significant pericardial effusion. Signed by : Elia Cevallos, Electronically Approved : 12/10/2020 16:57:08
== END ==
LOC: ECHO 14:17
PROVIDERS: ATTEND Internal Medicine Cardiovascular Disease
DX: I08.1 Rheumatic disorders of both mitral and tricuspid valves (principal); I44.2 Atrioventricular block, complete
CPT/HCPCS: 93306

== ENCOUNTER 2021-10-20 13:56 | Emergency (ER) | payer BC ==
[~2021-10-20] VITALS: Ht 149.9 cm; Wt 61.9 kg
[~2021-10-20 13:56] MED LIST changes: +DOXY100C3 PO; +PRED20TA PO
--- NOTE | 2021-10-20 14:34 | PHYS DOC ---
Past Medical History Past Medical History: A-Fib, High Cholesterol, Hypertension Additional Past Medical Histor: "enlarged heart", pt not taking medications for years Past Surgical History: Pacemaker Smoking Status: Former Smoker Alcohol Use: None Drug Use: None General Adult EDM: Chief Complaint: SORE THROAT HPI: HPI: Patient is a 76-year-old female who presents to the emergency department today for possible food bolus. Patient reports that she has pain when swallowing that started 30 minutes ago when she was eating lettuce. Patient reports that she feels like her lettuce is stuck in the back of her throat. Patient has been able to tolerate p.o. intake following episode. She denies any fever, nausea, vomiting, shortness of breath, drooling. Review of Systems: Review of Systems: Constitutional: See HPI HENT: See HPI Respiratory: See HPI GI: See HPI Heart Score: C/O Chest Pain: N/A Risk Factors: Risk Factors: DM, Current or recent (<one month) smoker, HTN, HLP, family history of CAD, obesity. Risk Scores: Score 0 - 3: 2.5% MACE over next 6 weeks - Discharge Home Score 4 - 6: 20.3% MACE over next 6 weeks - Admit for Clinical Observation Score 7 - 10: 72.7% MACE over next 6 weeks - Early Invasive Strategies Allergies: Allergies: Allergies Coded Allergies Type Severity Reaction Last Updated Verified No Known Drug Allergies 08/13/21 No Physical Exam: PE: Constitutional: Well developed, well nourished, no acute distress, non-toxic appearance. [] HENT: Normocephalic, atraumatic, bilateral external ears normal, oropharynx moist, patient maintaining secretions, no visible foreign body in the back of patient's throat, no tonsillar enlargement, postnasal drainage noted, no oropharyngeal erythema, uvula midline, no trismus, no phonation changes no oral exudates, nose normal. [] Eyes: PERRL, EOMI, conjunctiva normal, no discharge. [] Neck: Normal range of motion, no tenderness, supple, no stridor. [] Cardiovascular:Heart rate regular rhythm, no murmur [] Lungs & Thorax: Bilateral breath sounds clear to auscultation [] Abdomen: Bowel sounds normal, soft, no tenderness, no masses, no pulsatile masses. [] Skin: Warm, dry, no erythema, no rash. [] Back: Normal range of motion Extremities: No tenderness, no cyanosis, no clubbing, ROM intact, no edema. [] Neurologic: Alert and oriented X 3, normal motor function, normal sensory function, no focal deficits noted. [] Psychologic: Affect normal, judgement normal, mood normal. [] Current Patient Data: Vital Signs: Vital Signs Date Time Temp Pulse Resp B/P (MAP) Pulse Ox O2 Delivery O2 Flow Rate FiO2 10/20/21 13:58 98.6 93 22 144/62 (89) 96 Room Air 98.6 EKG: EKG: [] Radiology/Procedures: Radiology/Procedures: []REASON: foreign body rule out PROCEDURE: CHEST PA & LATERAL AP and Lateral Views of the Chest 10/20/2021 2:27 PM Indication: Reason: foreign body rule out / Spl. Instructions: / History: Comparison: Chest radiograph August 13, 2021 Findings: Linear radiopacities projecting over the neck most likely represent patient wearing a mask. Correlate clinically. There is a left-sided dual-lead pacemaking device and surgical clips in the right upper quadrant likely a cholecystectomy. No other radiopaque foreign bodies are identified. No pneumothorax, significant effusion, or focal infiltrate is seen. No acute osseous changes are seen. IMPRESSION: 1. Probable mask projecting over the neck. Correlate clinically 2. No other radiopaque foreign body is identified Electronically signed by: Nader Enriquez MD (10/20/2021 3:03 PM) [id number] DICTATED and SIGNED BY: NADER ENRIQUEZ MD DATE: 10/20/21 [id number] REASON: foreign body rule out PROCEDURE: CHEST PA & LATERAL AP and Lateral Views of the Chest 10/20/2021 2:27 PM Indication: Reason: foreign body rule out / Spl. Instructions: / History: Comparison: Chest radiograph August 13, 2021 Findings: Linear radiopacities projecting over the neck most likely represent patient wearing a mask. Correlate clinically. There is a left-sided dual-lead pacemaking device and surgical clips in the right upper quadrant likely a cholecystectomy. No other radiopaque foreign bodies are identified. No pneumothorax, significant effusion, or focal infiltrate is seen. No acute osseous changes are seen. IMPRESSION: 1. Probable mask projecting over the neck. Correlate clinically 2. No other radiopaque foreign body is identified Electronically signed by: Nader Enriquez MD (10/20/2021 3:03 PM) [id number] DICTATED and SIGNED BY: NADER ENRIQUEZ MD DATE: 10/20/21 [id number] 0 Course & Med Decision Making: Course & Med Decision Making Pertinent Labs and Imaging studies reviewed. (See chart for details) [] Patient presents to the emergency department for pain while swallowing. She reports that symptoms started 30 minutes ago when she was eating lettuce and she feels like there is lettuce stuck in the back of her throat. Patient has not had any drooling, nausea or vomiting. She is tolerating oral intake while in the emergency department. Patient was given a carbonated beverage. Her vital signs are stable, lung sounds are clear. X-ray performed of neck and chest. These were unremarkable and did not show any foreign bodies and the airways were patent. Patient will be referred to GI for an upper endoscopy. I discussed with patient all findings and diagnostic testing as well as the need to follow- up with PCP for further evaluation and treatment or return to the ER if any new or worsening symptoms. Strict return precautions were also discussed at length. Patient voiced understanding and agreement with the plan. Patient is hemodynamically stable at the time of disposition. Dragon Disclaimer: Dragon Disclaimer: This electronic medical record was generated, in whole or in part, using a voice recognition dictation system. Departure Departure Impression: Primary Impression: Foreign body sensation in throat Disposition: 01 HOME / SELF CARE / HOMELESS Condition: GOOD Referrals: ALTON ROSS DO (PCP) BENNETT LEWIS MD Patient Instructions: Swallowed Foreign Body, Adult Additional Instructions: You were seen in the emergency department today for pain with swallowing. We did an x-ray of your chest and neck and the airway was patent and there were no visible radiopaque foreign bodies. You are able to tolerate oral intake. You will need to follow-up with a GI doctor and have a scope performed. Please contact the GI doctor on your discharge paperwork when you are discharged from the emergency department to set up a follow-up appointment as soon as possible. Please return to the emergency department if you are unable to maintain your secretions/drooling, eat or drink, have intractable nausea or vomiting, difficulty breathing, shortness of breath, chest pain or any new or worsening concerns. LOIUE PHILLIPS APRN Oct 20, 2021 14:34
--- NOTE | 2021-10-20 15:06 | RAD ---
AP and Lateral Views of the Chest 10/20/2021 2:27 PM Indication: Reason: foreign body rule out / Spl. Instructions: / History: Comparison: Chest radiograph August 13, 2021 Findings: Linear radiopacities projecting over the neck most likely represent patient wearing a mask. Correlate clinically. There is a left-sided dual-lead pacemaking device and surgical clips in the ri ght upper quadrant likely a cholecystectomy. No other radiopaque foreign bodies are identified. No pn eumothorax, significant effusion, or focal infiltrate is seen. No acute osseous changes are seen. IMPRESSION: 1. Probable mask projecting over the neck. Correlate clinically 2. No other radiopaque foreign body is identified Electronically signed by: Nader Enriquez MD (10/20/2021 3:03 PM) [id number]
--- NOTE | 2021-10-20 15:09 | RAD ---
XR NECK SOFT TISSUE History: Foreign body Comparison: None. Technique: AP and lateral views of the neck. Findings: There is no prevertebral soft tissue swelling. The upper aerodigestive tract is patent. Normal appear ance of the epiglottis. The proximal cervical trachea is unremarkable. Calcifications project anterio r to the C3 vertebral body which likely correspond to carotid bulb calcifications. No radiopaque fore ign body is identified. Partially visualized left chest pacemaker leads. The lung apices are clear. M ild degenerative changes of the cervical spine. Impression: 1. No radiopaque foreign body identified in the neck. Electronically signed by: Lemuel Elliott MD (10/20/2021 3:07 PM) [id number]
[2021-10-20 15:38] VITALS: BP 155/67
== END 2021-10-20 15:45 | disposition home or self-care (01) ==
LOC: ER 13:56
DX: R09.89 Other specified symptoms and signs involving the circulatory and respiratory systems (principal); R13.10 Dysphagia, unspecified; I48.91 Unspecified atrial fibrillation; E78.00 Pure hypercholesterolemia, unspecified; I10 Essential (primary) hypertension; Z87.891 Personal history of nicotine dependence; Z95.0 Presence of cardiac pacemaker
CPT/HCPCS: 70360; 71046; 99284